=== PATIENT | female | born 1950 | race Caucasian/White ===

== ENCOUNTER → 2016-11-25 | Outpatient (CLI) | payer MEDICARE, OTHER ==
--- NOTE | 2016-11-28 16:53 | PE ---
EXAMINATION TYPE: PET CT fusion whole body DATE OF EXAM: 11/25/2016 1:09 PM COMPARISON: No prior PET/CT. No comparison CTs at this location. HISTORY: Non-Hodgkin's lymphoma TECHNIQUE: Following the intravenous administration of 15.7 mCi of F-18 FDG, whole body images are p erformed from the skull base to the midthigh. Images are reviewed on the computer in the coronal, ax ial, and sagittal planes. Reconstructed rotating images are created on independent workstation and r eviewed on the computer. A localization and attenuation correction CT is performed in conjunction w ith the PET scan. SCAN: Initial Scan FINDINGS: There is diffuse uptake within the musculature of the arms compatible with motion during an d subsequent to the injection. Focal uptake within enlarged lymphadenopathy is not identified. Small focal areas of increased uptake are not readily apparent. There is some normal uptake within brown fat in the posterior neck and nor mal uptake within bowel loops within the pelvis. Suspicious uptake in the region of the parotid gland is not identified. The patient has undergone a p arotidectomy. No residual abnormal signal in this region is evident. Blood glucose level 71 milligrams per deciliter. Average SUV mediastinum: 1.4 Average SUV of the liver: 2.0 SKULL BASE AND NECK: No focal suspicious uptake CHEST, MEDIASTINUM, AND HILAR REGION: No focal suspicious uptake ABDOMEN AND PELVIS: No focal suspicious uptake OSSEOUS STRUCTURES: Some minimal inflammatory change may be at the left L5-S1 facet. This SUV value i s intermediate range of 2.6 and 1.8. Metastatic lesion is not entirely excluded this level. OTHER CT: The ascending thoracic aorta at the level of the main pulmonary artery is 3.6 cm. The main pulmonary artery at the bifurcation is 2.5 cm. Very minimal coronary artery calcification may be pres ent. Vascular calcifications within the descending thoracic aorta. There appears to be a 0.8 cm peria ortic lymph node. Series 3 Image 138. Small inguinal lymph nodes are present. IMPRESSION: 1. No suspicious uptake to suggest distant metastasis. 2. No suspicious uptake within the region of the parotid glands.
== END | disposition home or self-care (01) ==
LOC: RADPETMAIN 07:55
PROVIDERS: ATTEND Internal Medicine Critical Care Medicine
DX: C85.90 Non-Hodgkin lymphoma, unspecified, unspecified site (principal)
CPT/HCPCS: 78816; A9552

== ENCOUNTER → 2017-01-18 | Outpatient (CLI) | payer MEDICARE, OTHER ==
--- NOTE | 2017-01-18 12:32 | XR ---
Left ankle HISTORY: Pain 3 views of the left ankle There is soft tissue swelling. Bone mineralization, joint spaces and alignment are maintained. IMPRESSION: No fracture or dislocation. Ankle MRI may be of benefit.
--- NOTE | 2017-01-18 12:33 | XR ---
Left foot HISTORY: Left foot pain 3 views of the left foot No comparisons Bone mineralization, joint spaces and alignment are maintained. There is overlying artifact. Mild staci lux valgus to formally first digit. There is no fracture or dislocation. IMPRESSION: Hallux valgus deformity.
== END | disposition home or self-care (01) ==
LOC: RADXRMAIN 11:42
PROVIDERS: ATTEND Internal Medicine Rheumatology
DX: M20.12 Hallux valgus (acquired), left foot (principal); M79.672 Pain in left foot

== ENCOUNTER → 2017-05-07 | Outpatient (CLI) | payer MEDICARE, OTHER ==
--- NOTE | 2017-05-07 11:27 | US ---
EXAMINATION TYPE: US venous doppler duplex LE RT DATE OF EXAM: 05/07/2017 11:14 AM COMPARISON: CLINICAL HISTORY: 66-year-old female M25.561 Pain in right leg. Posterior right knee pain. History of DVT in left leg x 8 years ago. Not on any blood thinners SIDE PERFORMED: Right TECHNIQUE: The lower extremity deep venous system is examined utilizing real time linear array sonog cecelia with graded compression, doppler sonography and color-flow sonography. FINDINGS: VESSELS IMAGED: External Iliac Vein (EIV) Common Femoral Vein Deep Femoral Vein Greater Saphenous Vein * Femoral Vein Popliteal Vein Small Saphenous Vein * Proximal Calf Veins (* superficial vessels) Right Leg: - Appears negative for DVT. - Along the posterior aspect of the knee, there is a superficial vein dilated up to 1 cm and filled w ith irregular thrombus. This fills the lumen and some areas and is incompletely occlusive thrombus. IMPRESSION: 1. No evidence for DVT within the right lower extremity imaged from the groin to the upper calf. 2. However, the exam is positive for SVT at the level of the posterior knee.
== END | disposition home or self-care (01) ==
LOC: RADUSWWP 10:17
PROVIDERS: ATTEND Orthopaedic Surgery
DX: I82.812 Embolism and thrombosis of superficial veins of left lower extremity (principal)

== ENCOUNTER 2017-05-14 07:02 | Emergency (ER) | payer MEDICARE, OTHER ==
--- NOTE | 2017-05-14 07:23 | ED ---
General Adult HPI - General Chief complaint: Extremity Injury, Lower Stated complaint: leg pain-blood clot Time Seen by Provider: 05/14/17 07:23 Source: patient, RN notes reviewed, old records reviewed Mode of arrival: ambulatory Limitations: no limitations - History of Present Illness Initial comments: This is a 66-year-old female ER for evaluation of multiple complaints, complains revolving around pain. 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 Patient complaining of right lower extremity pain. Briefly diagnosed with superficial clot. An severe back pain today, back pain that woke her up from sleep, back pain radiating into left leg. No trauma no fevers no recent travel history. No prior history of similar complaints - Related Data Home Medications Medication Instructions Recorded Confirmed Atorvastatin [Lipitor] 10 mg PO DAILY 05/14/17 05/14/17 Clobetasol Propionate [Temovate 1 applic TOPICAL BID 05/14/17 05/14/17 0.05% Cream] Doxycycline [Vibramycin] 50 mg PO Q12HR 05/14/17 05/14/17 Fexofenadine HCl [Kate Allergy] 180 mg PO DAILY PRN 05/14/17 05/14/17 Hydroxychloroquine Sulfate 200 mg PO DAILY 05/14/17 05/14/17 [Plaquenil] Losartan Potassium [Cozaar] 100 mg PO DAILY 05/14/17 05/14/17 Meloxicam [Mobic] 15 mg PO DAILY 05/14/17 05/14/17 Pilocarpine HCl [Salagen] 5 mg PO TID 05/14/17 05/14/17 Sulfamethox-Tmp 800-160Mg [Bactrim 1 tab PO Q12HR 05/14/17 05/14/17 DS 800-160 mg] amLODIPine BESYLATE [Norvasc] 5 mg PO DAILY 05/14/17 05/14/17 Previous Rx's Medication Instructions Recorded HYDROcodone/APAP 5-325MG [[place] 1 tab PO Q6HR PRN #20 tab 05/14/17 5-325] Naproxen [Naprosyn] 250 mg PO BID #20 tab 05/14/17 Allergies Allergy/AdvReac Type Severity Reaction Status Date / Time codeine Allergy Unknown Verified 05/14/17 07:27 erythromycin base Allergy Unknown Verified 05/14/17 07:27 nystatin Allergy Unknown Verified 05/14/17 07:27 Review of Systems ROS Statement: Those systems with pertinent positive or pertinent negative responses have been documented in the HPI. ROS Other: All systems not noted in ROS Statement are negative. Past Medical History Past Medical History: Asthma Additional Past Medical History / Comment(s): lupus, sjorgrens disease History of Any Multi-Drug Resistant Organisms: None Reported Past Surgical History: Hysterectomy, Tonsillectomy Past Psychological History: No Psychological Hx Reported Smoking Status: Current every day smoker Past Alcohol Use History: None Reported Past Drug Use History: None Reported General Exam Limitations: no limitations General appearance: alert, in no apparent distress Head exam: Present: atraumatic, normocephalic, normal inspection Eye exam: Present: normal appearance, PERRL, EOMI. Absent: scleral icterus, conjunctival injection, periorbital swelling ENT exam: Present: normal exam, mucous membranes moist Neck exam: Present: normal inspection. Absent: tenderness, meningismus, lymphadenopathy Respiratory exam: Present: normal lung sounds bilaterally. Absent: respiratory distress, wheezes, rales, rhonchi, stridor Cardiovascular Exam: Present: regular rate, normal rhythm, normal heart sounds. Absent: systolic murmur, diastolic murmur, rubs, gallop, clicks GI/Abdominal exam: Present: soft, normal bowel sounds. Absent: distended, tenderness, guarding, rebound, rigid Extremities exam: Present: normal inspection, full ROM, normal capillary refill. Absent: tenderness, pedal edema, joint swelling, calf tenderness Back exam: Present: normal inspection Neurological exam: Present: alert, oriented X3, CN II-XII intact Psychiatric exam: Present: normal affect, normal mood Skin exam: Present: warm, dry, intact, normal color. Absent: rash Course Vital Signs 05/14/17 05/14/17 07:05 09:19 Temperature 97.1 F L 96.7 F L Pulse Rate 92 68 Respiratory 17 17 Rate Blood Pressure 140/79 169/74 O2 Sat by Pulse 97 99 Oximetry - Reevaluation(s) Reevaluation #1: 05/14/17 10:44 His pain is resolved, controlled EKG Findings - EKG Comments: EKG Findings:: EKG shows normal sinus rhythm at 67, FL 164, QRS 84, QTC 448 Medical Decision Making - Medical Decision Making 66-year-old year with severe back pain, no history of back pain. Testing is deemed negative, including CRP lab work and CT, patient can be discharged home - Lab Data Result diagrams: 05/14/17 08:20 05/14/17 08:20 Lab Results 05/14/17 05/14/17 05/14/17 Range/Units 08:20 08:20 08:20 WBC 4.3 (3.8-10.6) k/uL RBC 4.25 (3.80-5.40) m/uL Hgb 13.6 (11.4-16.0) gm/dL Hct 38.7 (34.0-46.0) % MCV 91.0 (80.0-100.0) fL MCH 32.0 (25.0-35.0) pg MCHC 35.1 (31.0-37.0) g/dL RDW 12.4 (11.5-15.5) % Plt Count 285 (150-450) k/uL Neutrophils % 69 % Lymphocytes % 13 % Monocytes % 11 % Eosinophils % 2 % Basophils % 1 % Neutrophils # 3.0 (1.3-7.7) k/uL Lymphocytes # 0.6 L (1.0-4.8) k/uL Monocytes # 0.5 (0-1.0) k/uL Eosinophils # 0.1 (0-0.7) k/uL Basophils # 0.0 (0-0.2) k/uL PT (9.0-12.0) sec INR (<1.2) APTT (22.0-30.0) sec Sodium 128 L (137-145) mmol/L Potassium 4.5 (3.5-5.1) mmol/L Chloride 97 L (98-107) mmol/L Carbon Dioxide 21 L (22-30) mmol/L Anion Gap 10 mmol/L BUN 18 H (7-17) mg/dL Creatinine 0.83 (0.52-1.04) mg/dL Est GFR (MDRD) Af Amer >60 (>60 ml/min/1.73 sqM) Est GFR (MDRD) Non-Af >60 (>60 ml/min/1.73 sqM) Glucose 84 (74-99) mg/dL Plasma Lactic Acid Diaz (0.7-2.0) mmol/L Calcium 9.4 (8.4-10.2) mg/dL Phosphorus 3.2 (2.5-4.5) mg/dL Magnesium 1.7 (1.6-2.3) mg/dL Total Bilirubin 0.3 (0.2-1.3) mg/dL AST 22 (14-36) U/L ALT 34 (9-52) U/L Alkaline Phosphatase 83 (38-126) U/L Total Creatine Kinase 64 (30-135) U/L CK-MB (CK-2) 1.6 (0.0-2.4) ng/mL CK-MB (CK-2) Rel Index 2.5 C-Reactive Protein <5.0 (<10.0) mg/L Total Protein 6.3 (6.3-8.2) g/dL Albumin 3.8 (3.5-5.0) g/dL Urine Color Urine Appearance (Clear) Urine pH (5.0-8.0) Ur Specific [place] (1.001-1.035) Urine Protein (Negative) Urine Glucose (UA) (Negative) Urine Ketones (Negative) Urine Blood (Negative) Urine Nitrite (Negative) Urine Bilirubin (Negative) Urine Urobilinogen (<2.0) mg/dL Ur Leukocyte Esterase (Negative) 05/14/17 05/14/17 05/14/17 Range/Units 08:20 08:20 08:20 WBC (3.8-10.6) k/uL RBC (3.80-5.40) m/uL Hgb (11.4-16.0) gm/dL Hct (34.0-46.0) % MCV (80.0-100.0) fL MCH (25.0-35.0) pg MCHC (31.0-37.0) g/dL RDW (11.5-15.5) % Plt Count (150-450) k/uL Neutrophils % % Lymphocytes % % Monocytes % % Eosinophils % % Basophils % % Neutrophils # (1.3-7.7) k/uL Lymphocytes # (1.0-4.8) k/uL Monocytes # (0-1.0) k/uL Eosinophils # (0-0.7) k/uL Basophils # (0-0.2) k/uL PT 10.4 (9.0-12.0) sec INR 1.0 (<1.2) APTT 24.6 (22.0-30.0) sec Sodium (137-145) mmol/L Potassium (3.5-5.1) mmol/L Chloride (98-107) mmol/L Carbon Dioxide (22-30) mmol/L Anion Gap mmol/L BUN (7-17) mg/dL Creatinine (0.52-1.04) mg/dL Est GFR (MDRD) Af Amer (>60 ml/min/1.73 sqM) Est GFR (MDRD) Non-Af (>60 ml/min/1.73 sqM) Glucose (74-99) mg/dL Plasma Lactic Acid Diaz 1.1 (0.7-2.0) mmol/L Calcium (8.4-10.2) mg/dL Phosphorus (2.5-4.5) mg/dL Magnesium (1.6-2.3) mg/dL Total Bilirubin (0.2-1.3) mg/dL AST (14-36) U/L ALT (9-52) U/L Alkaline Phosphatase (38-126) U/L Total Creatine Kinase (30-135) U/L CK-MB (CK-2) (0.0-2.4) ng/mL CK-MB (CK-2) Rel Index C-Reactive Protein (<10.0) mg/L Total Protein (6.3-8.2) g/dL Albumin (3.5-5.0) g/dL Urine Color Yellow Urine Appearance Clear (Clear) Urine pH 7.0 (5.0-8.0) Ur Specific [place] 1.014 (1.001-1.035) Urine Protein Trace H (Negative) Urine Glucose (UA) Negative (Negative) Urine Ketones Negative (Negative) Urine Blood Negative (Negative) Urine Nitrite Negative (Negative) Urine Bilirubin Negative (Negative) Urine Urobilinogen <2.0 (<2.0) mg/dL Ur Leukocyte Esterase Negative (Negative) - Radiology Data Radiology results: report reviewed (CT abdomen and pelvis CT lumbar spine negative, ultrasound right lower extremity), image reviewed Disposition Clinical Impression: Acute back pain Disposition: HOME SELF-CARE Condition: Good Instructions: Acute Low Back Pain (ED) Prescriptions: HYDROcodone/APAP 5-325MG [[place] 5-325] 1 tab PO Q6HR PRN #20 tab PRN Reason: Pain Naproxen [Naprosyn] 250 mg PO BID #20 tab Referrals: Ayana Guzmán MD [Primary Care Provider] - 1-2 days
[2017-05-14] MEDS ORDERED: HYDROcodone/APAP 5-325MG 1 EACH TAB PO STA (07:37)
[2017-05-14] MEDS ORDERED: SODIUM CHLORIDE 0.9% 1,000 ML IV STA ×3 (07:51→10:11)
[2017-05-14] MEDS ORDERED: RX INFO: IV CONTRAST WAS GIVEN 1 EACH MISC MISCELLANE PRN (07:51)
[2017-05-14] MEDS ORDERED: MORPHINE SULFATE 4 MG/ML SYRINGE IV STA (07:51)
[2017-05-14] MEDS ORDERED: SODIUM CHLORIDE 0.9% 500 ML IV STA (07:51)
[2017-05-14 08:37] LABS: Basophils % (A) 1 %; CH 31.9; CHCM 35.2; Eosinophils # (A) 0.1 k/uL (0-0.7); Eosinophils % (A) 2 %; HCT 38.7 % (34.0-46.0); HDW 2.39; HGB 13.6 gm/dL (11.4-16.0); Luc # (Auto) 0.16; Luc % (Auto) 4; Lymphocytes # (A) 0.6 k/uL (1.0-4.8); Lymphocytes % (A) 13 %; MCHC 35.1 g/dL (31.0-37.0); Mean Platelet Volume 6.6; Monocytes # (A) 0.5 k/uL (0-1.0); Monocytes % (A) 11 %; Neutrophils % (A) 69 %; RBC 4.25 m/uL (3.80-5.40); RDW 12.4 % (11.5-15.5); WBC 4.3 k/uL (3.8-10.6); WBC (Perox) 4.54
[2017-05-14 08:38] LABS: Appearance,Urine Clear (Clear); Bilirubin,Urine Negative (Negative); Glucose,Urine (UA) Negative (Negative); Ketones,Urine Negative (Negative); Leukocyte Esterase,Urine Negative (Negative); Nitrite,Urine Negative (Negative); Protein,Urine Trace (Negative); Specific Gravity,Urine 1.014 (1.001-1.035); UA Billing (MACRO vs. MICRO) CHEM; Urobilinogen,Urine <2.0 mg/dL (<2.0)
[2017-05-14 08:46] LABS: Partial Thromboplastin Time 24.6 sec (22.0-30.0); Prothrombin Time 10.4 sec (9.0-12.0)
[2017-05-14 08:58] LABS: ALT 34 U/L (9-52); AST 22 U/L (14-36); Alkaline Phosphatase 83 U/L (38-126); Anion Gap 10 mmol/L; Blood Urea Nitrogen 18 mg/dL (7-17); Calcium 9.4 mg/dL (8.4-10.2); Carbon Dioxide 21 mmol/L (22-30); Chloride 97 mmol/L (98-107); Glucose 84 mg/dL (74-99); Magnesium 1.7 mg/dL (1.6-2.3); Non-African American GFR(MDRD) >60 (>60 ml/min/1.73 sqM); Phosphorous 3.2 mg/dL (2.5-4.5); Potassium 4.5 mmol/L (3.5-5.1); Sodium 128 mmol/L (137-145); Total Bilirubin 0.3 mg/dL (0.2-1.3)
--- NOTE | 2017-05-14 09:04 | US ---
EXAMINATION TYPE: US venous doppler duplex LE RT DATE OF EXAM: 05/14/2017 8:52 AM COMPARISON: 05/07/2017 CLINICAL HISTORY: Pain. Severe back pain today, leg not bothering patient versus when she was here week but she had appt to reassess right leg as outpatient today, no h/o dvt SIDE PERFORMED: Right TECHNIQUE: The lower extremity deep venous system is examined utilizing real time linear array sonog cecelia with graded compression, doppler sonography and color-flow sonography. 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 No diagnostic evidence of DVT as visualized. Superficial venous thrombosis again noted. 2. Complex cyst popliteal fossa. Measures approximately 3.6 cm. Consider MRI follow-up.
[2017-05-14 09:19] LABS: Creatine Kinase MB 1.6 ng/mL (0.0-2.4)
[2017-05-14 09:20] VITALS: TEMP 96.7
[2017-05-14 09:28] LABS: C Reactive Protein <5.0 mg/L (<10.0); Total Protein 6.3 g/dL (6.3-8.2)
--- NOTE | 2017-05-14 09:56 | CT ---
EXAMINATION TYPE: CT abdomen pelvis w con, CT lumbar spine w con DATE OF EXAM: 05/14/2017 HISTORY: Abdominal and back pain, history of lymphoma. CT DLP: 651.3 (abd pelvis and lumbar)mGycm Automated Exposure Control for Dose Reduction was Utilize d. CONTRAST: CT scan of the abdomen and pelvis is performed without oral but with IV Contrast, patient injected wi th 100 mL of Omnipaque 300. Additional CT imaging of the lumbar spine is performed with IV contrast. COMPARISON: PET CT November 25, 2016. FINDINGS: LUNG BASES: No significant abnormality is appreciated. LIVER/GB: No significant abnormality is appreciated. PANCREAS: No significant abnormality is seen. SPLEEN: A 1 cm splenule is seen inferior to the spleen. ADRENALS: No significant abnormality is seen. KIDNEYS: No significant abnormality is seen. BOWEL: There is slightly prominent low lying fecal filled cecum. Normal-appearing appendix is seen fr om cecum. The amount of fecal material is slightly prominent in the right and left colon. There is n o suspicious small or large bowel dilatation seen. UTERUS/ADNEXA: Uterus is surgically absent or markedly atrophic in appearance. LYMPH NODES: No greater than 1cm abdominal or pelvic lymph nodes are appreciated. OSSEOUS STRUCTURES: There is mild to moderate axial joint space loss in both hips. OTHER: There is mild calcified atherosclerotic change of distal abdominal aorta. L-SPINE: There are 5 lumbar type vertebra identified. Lumbar spine shows satisfactory alignment witho ut evidence of acute fracture or dislocation. Osseous structures are demineralized. Vertebral body he ights are maintained. There is moderate to advanced disc space narrowing with endplate sclerosis and subchondral cystic change as well as moderate anterior spurring L2-L3 level. There is moderate disc s pace narrowing with vacuum disc phenomenon and mild to moderate spurring at L5-S1 level. Posterior sp ur disc complexes are effacing anterior thecal sac at these levels on sagittal images. Review of axial images shows a T12-L1 and L1-L2 levels to appear within normal limits. Axial images at L2-L3 level show broad-based posterior disc protrusion effacing anterior thecal sac, there is mild bilateral anterior inferior neural foraminal narrowing at this level identified. Axial images at L3-L4 level show broad-based central disc protrusion mildly effacing anterior thecal sac and causing mild bilateral anterior inferior neural foraminal narrowing. Axial images at L4-L5 level show mild to moderate facet degenerative changes and ligament flavum hype rtrophy. There is right paracentral disc protrusion. There is effacement of the anterior and posterio r lateral thecal sac near axial image 52. There is mild bilateral anterior inferior neural foraminal narrowing. Axial images at L5-S1 level shows central disc protrusion perhaps minimally effacing anterior thecal sac and mild to moderate facet degenerative changes bilaterally. There is mild right greater than lef t neural foraminal narrowing seen. IMPRESSION: No significant acute finding is seen to account for patient's clinical symptoms. No suspi cious mass or adenopathy in the abdomen or pelvis. Liver and spleen are nonenlarged. Multilevel degen erative changes in lumbar spine are seen as detailed above.
[2017-05-14] MEDS ORDERED: KETOROLAC 30 MG/ML 1 ML VIAL IVP STA (10:43)
[2017-05-14 11:17] VITALS: BP 147/67; PULSE 70; RESP 16
== END 2017-05-14 11:30 | disposition home or self-care (01) ==
LOC: EC 07:02
DX: M54.9 Dorsalgia, unspecified (principal); M79.661 Pain in right lower leg; F17.200 Nicotine dependence, unspecified, uncomplicated; Z88.5 Allergy status to narcotic agent; Z88.1 Allergy status to other antibiotic agents; Z79.1 Long term (current) use of non-steroidal anti-inflammatories (NSAID); Z79.899 Other long term (current) drug therapy
CPT/HCPCS: 36415; 93005; 80053; 82550; 82553; 83605; 83735; 84100; 85025; 85610; 85730; 86140; 81003; 87040; 87086; 93971; 72132; 74177; 99284; 96374; 96375; 96361 ×3; J2270; J1885; Q9967

== ENCOUNTER → 2017-06-07 | Outpatient (CLI) | payer MEDICARE, OTHER ==
[2017-06-07 08:20] LABS: Basophils % (A) 1 %; CH 31.7; CHCM 33.8; Eosinophils # (A) 0.1 k/uL (0-0.7); Eosinophils % (A) 3 %; HCT 39.3 % (34.0-46.0); HDW 2.42; HGB 13.2 gm/dL (11.4-16.0); Luc # (Auto) 0.12; Luc % (Auto) 3; Lymphocytes # (A) 0.5 k/uL (1.0-4.8); Lymphocytes % (A) 14 %; MCH 31.6 pg (25.0-35.0); MCHC 33.7 g/dL (31.0-37.0); Mean Platelet Volume 6.6; Monocytes # (A) 0.5 k/uL (0-1.0); Monocytes % (A) 12 %; Neutrophils # (A) 2.7 k/uL (1.3-7.7); Neutrophils % (A) 68 %; RBC 4.18 m/uL (3.80-5.40); WBC 3.9 k/uL (3.8-10.6); WBC (Perox) 3.91
[2017-06-07 08:39] LABS: Cholesterol 219 mg/dL (<200); HDL Cholesterol 84 mg/dL (40-60)
== END | disposition home or self-care (01) ==
LOC: LABWHC1 07:40
PROVIDERS: ATTEND Internal Medicine Critical Care Medicine
DX: C85.90 Non-Hodgkin lymphoma, unspecified, unspecified site (principal); E78.5 Hyperlipidemia, unspecified; M32.9 Systemic lupus erythematosus, unspecified; M35.00 Sjogren syndrome, unspecified; I10 Essential (primary) hypertension
CPT/HCPCS: 36415; 80061; 85025

== ENCOUNTER → 2017-06-11 | Outpatient (CLI) | payer MEDICARE, OTHER ==
--- NOTE | 2017-06-11 10:22 | US ---
EXAMINATION TYPE: US venous doppler duplex LE RT DATE OF EXAM: 06/11/2017 10:05 AM COMPARISON: 05/14/2017 and 05/07/2017. CLINICAL HISTORY: RTLeg I80.9 Phlebitis and thrombophlebitis. SIDE PERFORMED: Right TECHNIQUE: The lower extremity deep venous system is examined utilizing real time linear array sonog cecelia with graded compression, doppler sonography and color-flow sonography. VESSELS IMAGED: External Iliac Vein (EIV) Common Femoral Vein Deep Femoral Vein Greater Saphenous Vein * Femoral Vein Popliteal Vein Small Saphenous Vein * Proximal Calf Veins (* superficial vessels) The previously seen complex cyst within the popliteal fossa currently measures 1.6 x 1.1 x 2.0 cm and previously measured up to 3.6 cm. Elongated hypoechoic structure along the proximal calf posterior t o the soleus muscle and deep to the subcutaneous tissues is discontinuous and therefore likely relate s to subcutaneous fluid insinuating along the fascial surface. Alternatively this could represent a t ortuous venous structure. Right Leg: Grayscale, color doppler, spectral doppler imaging performed of the deep veins of the low er extremities. There is normal flow, compressibility, vascular waveforms bilaterally. Findings were relayed to the ordering physician by the tinner helper. IMPRESSION: 1. No evidence of deep venous thrombosis. 2. Redemonstration of a popliteal cyst. 3. Elongated fluid superficial to the fascial plane of the gastrocnemius that appears discontinuous a nd this likely represents subcutaneous fluid rather than a tortuous venous structure. Correlation cli nically for thrombophlebitis versus subcutaneous edema is recommended.
== END | disposition home or self-care (01) ==
LOC: RADUSWWP 09:35
PROVIDERS: ATTEND Internal Medicine Critical Care Medicine
DX: M71.21 Synovial cyst of popliteal space [Baker], right knee (principal); R22.41 Localized swelling, mass and lump, right lower limb

== ENCOUNTER → 2018-01-10 | Outpatient (CLI) | payer MEDICARE, OTHER ==
[2018-01-10 08:12] LABS: Basophils % (A) 0 %; Eosinophils % (A) 0 %; HCT 38.2 % (34.0-46.0); HGB 13.4 gm/dL (11.4-16.0); Lymphocytes % (A) 13 %; MCH 32.2 pg (25.0-35.0); MCV 91.9 fL (80.0-100.0); Mean Platelet Volume 6.5; Monocytes # (A) 0.8 k/uL (0-1.0); Monocytes % (A) 10 %; Neutrophils # (A) 5.9 k/uL (1.3-7.7); Neutrophils % (A) 75 %; Platelet Count 304 k/uL (150-450); RBC 4.16 m/uL (3.80-5.40); RDW 13.3 % (11.5-15.5); WBC 7.9 k/uL (3.8-10.6)
== END | disposition home or self-care (01) ==
LOC: LABWHC1 07:22
PROVIDERS: ATTEND Internal Medicine Critical Care Medicine
DX: C85.90 Non-Hodgkin lymphoma, unspecified, unspecified site (principal); J45.909 Unspecified asthma, uncomplicated; M35.00 Sjogren syndrome, unspecified; M32.9 Systemic lupus erythematosus, unspecified
CPT/HCPCS: 36415; 85025

== ENCOUNTER → 2018-08-06 | Outpatient (CLI) | payer MEDICARE, OTHER ==
[2018-08-06 08:30] LABS: Cholesterol 182 mg/dL (<200); HDL Cholesterol 82 mg/dL (40-60); LDL Cholesterol,Calculated 90 mg/dL (0-99); Triglycerides 51 mg/dL (<150)
[2018-08-06 08:44] LABS: Basophils % (A) 1 %; Eosinophils # (A) 0.2 k/uL (0-0.7); Eosinophils % (A) 5 %; HCT 40.3 % (34.0-46.0); HGB 13.8 gm/dL (11.4-16.0); Lymphocytes # (A) 0.7 k/uL (1.0-4.8); Lymphocytes % (A) 21 %; MCH 31.1 pg (25.0-35.0); MCHC 34.1 g/dL (31.0-37.0); MCV 91.2 fL (80.0-100.0); Mean Platelet Volume 7.2; Monocytes # (A) 0.5 k/uL (0-1.0); Monocytes % (A) 15 %; Neutrophils # (A) 1.9 k/uL (1.3-7.7); Neutrophils % (A) 57 %; Platelet Count 223 k/uL (150-450); RBC 4.42 m/uL (3.80-5.40); RDW 13.3 % (11.5-15.5); WBC 3.4 k/uL (3.8-10.6)
== END ==
LOC: LABWHC1 06:40
PROVIDERS: ATTEND Internal Medicine Critical Care Medicine
DX: E78.00 Pure hypercholesterolemia, unspecified (principal); Z79.899 Other long term (current) drug therapy
CPT/HCPCS: 36415; 80061; 85025

== ENCOUNTER → 2020-01-05 | Outpatient (CLI) | payer MEDICARE, OTHER ==
[2020-01-05 08:00] LABS: Basophils % (A) 1 %; Eosinophils # (A) 0.1 k/uL (0-0.7); Eosinophils % (A) 2 %; HGB 14.2 gm/dL (11.4-16.0); Lymphocytes # (A) 0.9 k/uL (1.0-4.8); Lymphocytes % (A) 22 %; MCH 30.9 pg (25.0-35.0); MCHC 32.9 g/dL (31.0-37.0); MCV 93.8 fL (80.0-100.0); Mean Platelet Volume 7.2; Monocytes # (A) 0.5 k/uL (0-1.0); Monocytes % (A) 13 %; Neutrophils # (A) 2.2 k/uL (1.3-7.7); Neutrophils % (A) 58 %; Platelet Count 232 k/uL (150-450); RBC 4.59 m/uL (3.80-5.40); RDW 12.4 % (11.5-15.5); WBC 3.9 k/uL (3.8-10.6)
[2020-01-05 11:03] LABS: African American GFR (CKD) 102.5 (60.0-200.0); Albumin 4.5 g/dL (3.80-4.90); Albumin/Globulin Ratio 2.25 (1.60-3.17); Anion Gap 8.2 mmol/L (4.00-12.00); BUN/Creat Ratio 27.14 Ratio (12.00-20.00); Calcium 9.6 mg/dL (8.7-10.3); Carbon Dioxide 26.8 mmol/L (21.6-31.8); Chol/HDL Ratio 2.14; LDL Cholesterol,Calculated 85.6 mg/dL (0.0-131.0); Non-African American GFR(CKD) 88.4 (60.0-200.0); Potassium 4.4 mmol/L (3.5-5.5); Total Bilirubin 0.6 mg/dL (0.2-1.2); Total Protein 6.5 g/dL (6.2-8.2); VLDL Calculation 10.4 mg/dL (5.00-40.00)
[2020-01-05 11:11] LABS: T4, Free (Free Thyroxine) 1.4 ng/dL (0.80-1.80)
== END | disposition home or self-care (01) ==
LOC: LABWHC1 07:14
PROVIDERS: ATTEND Internal Medicine Critical Care Medicine
DX: E78.5 Hyperlipidemia, unspecified (principal); I10 Essential (primary) hypertension; J45.909 Unspecified asthma, uncomplicated; I83.93 Asymptomatic varicose veins of bilateral lower extremities
CPT/HCPCS: 36415; 80053; 80061; 84439; 84443; 85025

== ENCOUNTER → 2020-01-07 | Outpatient (CLI) | payer MEDICARE | END | disposition home or self-care (01) | LOC: LABWHC1 07:07 | PROVIDERS: ATTEND Physician Assistant | DX: Z47.1 Aftercare following joint replacement surgery (principal); Z96.651 Presence of right artificial knee joint | CPT/HCPCS: 36415; 85652; 86140 ==

== ENCOUNTER 2020-03-06 00:44 | Emergency (ER) | payer MEDICARE, OTHER ==
[2020-03-06] MEDS ORDERED: HYDROmorphone 1 MG/ML 1 ML SYRINGE IVP STA (00:53)
--- NOTE | 2020-03-06 01:15 | XR ---
EXAMINATION TYPE: XR knee complete RT DATE OF EXAM: 03/06/2020 COMPARISON: NONE HISTORY: Knee pain TECHNIQUE: 3 views FINDINGS: There is right knee prosthesis. There is large knee joint effusion. I see no fracture nor d islocation. Components are in anatomic position. IMPRESSION: Large knee joint effusion. No fracture seen.
[2020-03-06 01:17] VITALS: PULSE 68; RESP 18
--- NOTE | 2020-03-06 01:27 | ED ---
Extremity Problem HPI - General Chief complaint: Extremity Problem,Nontraumatic Stated complaint: knee pain Time Seen by Provider: 03/06/20 00:46 Source: EMS Mode of arrival: EMS Limitations: no limitations - History of Present Illness Initial comments: 69 year-old female patient presents to the emergency department today for evaluation of right knee pain. Patient states that pain started just prior to arrival. She states it woke her from sleep. She denies any recent injury to the knee. States on 02/10/2020 she did hyperextend the knee and developed significant bruising and swelling to the knee since then. Patient states that she had a right total knee replacement approximately one year ago and has been having chronic pain to the lateral knee since then. States that she has followed up multiple times and [facility], they are unable to find a cause for her pain. States since the hyperextension she did follow up with Dr. Carbajal at the [facility], states he did drain a large amount of blood from the knee. Patient states she was in her usual state of health before going to bed. States she slept with her knee on a pillow like every other night. States that the knee hurts worse than it ever has before. She feels like the "bones are out of place". She denies any fever or chills. Denies numbness or tingling to the knee. Patient denies any headache, neck pain, back pain, chest pain, shortness of breath, dizziness, weakness, abdominal pain, nausea, vomiting, or difficulties with bowel movements or urination. - Related Data Home Medications Medication Instructions Recorded Confirmed Atorvastatin [Lipitor] 10 mg PO DAILY 05/14/17 05/14/17 Clobetasol Propionate [Temovate 1 applic TOPICAL BID 05/14/17 05/14/17 0.05% Cream] Doxycycline [Vibramycin] 50 mg PO Q12HR 05/14/17 05/14/17 Fexofenadine HCl [Kate Allergy] 180 mg PO DAILY PRN 05/14/17 05/14/17 Hydroxychloroquine Sulfate 200 mg PO DAILY 05/14/17 05/14/17 [Plaquenil] Losartan Potassium [Cozaar] 100 mg PO DAILY 05/14/17 05/14/17 Meloxicam [Mobic] 15 mg PO DAILY 05/14/17 05/14/17 Pilocarpine HCl [Salagen] 5 mg PO TID 05/14/17 05/14/17 Sulfamethox-Tmp 800-160Mg [Bactrim 1 tab PO Q12HR 05/14/17 05/14/17 DS 800-160 mg] amLODIPine BESYLATE [Norvasc] 5 mg PO DAILY 05/14/17 05/14/17 Previous Rx's Medication Instructions Recorded HYDROcodone/APAP 5-325MG [Mereta 1 tab PO Q6HR PRN #20 tab 05/14/17 5-325] Naproxen [Naprosyn] 250 mg PO BID #20 tab 05/14/17 Hydrocodone/Acetaminophen [Mereta 1 tab PO Q6HR PRN #12 tab 03/06/20 5-325] Allergies Allergy/AdvReac Type Severity Reaction Status Date / Time codeine Allergy Unknown Verified 03/06/20 01:17 erythromycin base Allergy Unknown Verified 03/06/20 01:17 nystatin Allergy Unknown Verified 03/06/20 01:17 Review of Systems ROS Statement: Those systems with pertinent positive or pertinent negative responses have been documented in the HPI. ROS Other: All systems not noted in ROS Statement are negative. Past Medical History Past Medical History: Asthma Additional Past Medical History / Comment(s): lupus, sjorgrens disease History of Any Multi-Drug Resistant Organisms: None Reported Past Surgical History: Hysterectomy, Joint Replacement, Tonsillectomy Past Psychological History: No Psychological Hx Reported Smoking Status: Never smoker Past Alcohol Use History: None Reported Past Drug Use History: None Reported General Exam Limitations: no limitations General appearance: alert, in no apparent distress, other (This is a well- developed, well-nourished adult female patient in no acute distress. Vital signs upon presentation are temperature 97.8F, pulse 68, respirations 18, blood pressure 150/82, pulse ox 99% on room air.) Respiratory exam: Present: normal lung sounds bilaterally. Absent: respiratory distress, wheezes, rales, rhonchi, stridor Cardiovascular Exam: Present: regular rate, normal rhythm, normal heart sounds. Absent: systolic murmur, diastolic murmur, rubs, gallop, clicks GI/Abdominal exam: Present: soft, normal bowel sounds. Absent: distended, tenderness, guarding, rebound, rigid Extremities exam: Present: tenderness (Over the anterior and posterior knee over the right lateral calf.), normal capillary refill, other (There is soft tissue swelling, extensive ecchymosis noted over the right anterior knee and right lateral calf. Skin is otherwise pink, warm, dry. Cap refills less than 3 seconds. Pedal and posttibial pulses 2+ and equal bilaterally.). Absent: normal inspection, full ROM (Decreased range of motion to the right knee due to increased pain with movement), pedal edema, joint swelling, calf tenderness Neurological exam: Present: alert, oriented X3, CN II-XII intact Psychiatric exam: Present: normal affect, normal mood Skin exam: Present: warm, dry, intact, normal color. Absent: rash Course Vital Signs 03/06/20 01:14 Temperature 97.8 F Pulse Rate 68 Respiratory 18 Rate Blood Pressure 158/82 O2 Sat by Pulse 99 Oximetry Medical Decision Making - Medical Decision Making 69-year-old female patient presented to the emergency department today for evaluation of right knee pain that woke her from sleep. Patient does have chronic pain to the right knee over the last year since having a total knee arthroplasty. She receives care at the [facility]. Physical examination did reveal large area of ecchymosis and swelling over the anterior right knee and right lateral calf. Neurovascular status was intact. X-ray was obtained and showed a large knee joint effusion. No osseous abnormalities. Ultrasound was obtained and did show a Garber cyst and large knee joint effusion. She will be discharged to follow up with her sap specialist on Sunday. She does have imaging ordered at [facility]. She'll be given a prescription for pain medication to manage symptoms until then. Return parameters were discussed in detail. She verbalizes understanding and agrees with this plan. - Radiology Data Radiology results: report reviewed, image reviewed Ultrasound of the right lower extremity was obtained. Report was reviewed in its entirety. Impression by Dr. Welch shows negative for DVT. There is a 5.6 x 2.8 x 2.6 complex area seen probably a Garber cyst. Right knee at the patient's area of concern shows a 10.6 x 2.4 x 5.6 complex area which is likely joint effusion. 3 views of the right knee are obtained. Report was reviewed in its entirety. Impression by Dr. Welch shows large knee joint effusion. No fracture seen Disposition Clinical Impression: Effusion of right knee joint Disposition: HOME SELF-CARE Condition: Good Instructions (If sedation given, give patient instructions): Swollen Knee Joint (ED) Additional Instructions: Follow-up with your sap specialist for further evaluation. Follow-up through care testing on Sunday as you have planned. Take medications as directed for pain control. Return to the emergency department immediately for any new, worsening, or concerning symptoms. Prescriptions: Hydrocodone/Acetaminophen [Mereta 5-325] 1 tab PO Q6HR PRN #12 tab PRN Reason: Pain Is patient prescribed a controlled substance at d/c from ED?: Yes When asked, does pt state using other controlled substances?: Yes If prescribed controlled substance>3 days was MAPS reviewed?: Prescribed <3 Days If opioid is for acute pain is fill amount 7 days or less?: Yes If Rx opioid, was Start Talking consent form obtained?: Yes Referrals: Ayana Guzmán MD [Primary Care Provider] - 1-2 days Frederick Carbajal MD [REFERRING] - 1-2 days Time of Disposition: 02:31
--- NOTE | 2020-03-06 02:07 | US ---
EXAMINATION TYPE: US venous doppler duplex LE RT DATE OF EXAM: 03/06/2020 1:55 AM COMPARISON: US 2017 CLINICAL HISTORY: Right leg pain/swelling. Right leg pain SIDE PERFORMED: Right TECHNIQUE: The lower extremity deep venous system is examined utilizing real time linear array sonog cecelia with graded compression, doppler sonography and color-flow sonography. VESSELS IMAGED: External Iliac Vein (EIV) Common Femoral Vein Deep Femoral Vein Greater Saphenous Vein * Femoral Vein Popliteal Vein Small Saphenous Vein * Proximal Calf Veins (* superficial vessels) Right Leg: Appears negative for DVT Right popliteal fossa: 5.6 x 2.8 x 2.6cm complex area seen, probable perez's cyst Right knee at patient's area of concern: 10.6 x 2.4 x 5.6cm complex area seen IMPRESSION: No evidence of deep vein thrombosis in the right leg. Large popliteal cyst noted. Complex area anterior to the distal femur consistent with complex knee joint effusion. This measures 10 x 2. 5 cm.
[2020-03-06 03:18] VITALS: BP 148/75; TEMP 98.4
== END 2020-03-06 03:45 | disposition home or self-care (01) ==
LOC: EC 00:44
DX: M25.461 Effusion, right knee (principal); G89.29 Other chronic pain; M71.21 Synovial cyst of popliteal space [Baker], right knee; Z79.1 Long term (current) use of non-steroidal anti-inflammatories (NSAID); Z79.899 Other long term (current) drug therapy; Z88.1 Allergy status to other antibiotic agents; Z88.5 Allergy status to narcotic agent; Z88.8 Allergy status to other drugs, medicaments and biological substances; Z96.651 Presence of right artificial knee joint
CPT/HCPCS: 73562; 93971; 99284; 96374; J1170

== ENCOUNTER → 2021-12-22 | Outpatient (CLI) | payer MEDICARE, OTHER ==
[2021-12-22 15:44] LABS: Blood Urea Nitrogen 20.9 mg/dL (9.0-27.0); Non-African American GFR(CKD) 74.2 (60.0-200.0)
== END | disposition home or self-care (01) ==
LOC: LABWHC1 10:33
PROVIDERS: ATTEND Internal Medicine Hematology & Oncology
DX: C85.90 Non-Hodgkin lymphoma, unspecified, unspecified site (principal); J45.909 Unspecified asthma, uncomplicated; L93.0 Discoid lupus erythematosus; M35.00 Sjogren syndrome, unspecified
CPT/HCPCS: 36415; 82565; 84520

== ENCOUNTER → 2022-01-30 | Outpatient (CLI) | payer MEDICARE, OTHER ==
--- NOTE | 2022-01-30 10:25 | P.CON ---
Consult Note - . Consult date: 01/30/22 Assessment/Plan:: HISTORY OF PRESENT ILLNESS: 71 yr old female as a referral from Dr. 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 Patient states neck pain waxes & wanes in intensity throughout the day based on activity, but is generally 5/10, dull, achy, localized to the bilateral neck area with radiation of pain to the left side of the head and the right shoulder. Pain exacerbated with activity. Pain is relieved with medications, topicals, heat, physical therapy in May 2021, chiropractic treatments years ago which were ineffective, use of a TENS unit at home, use of a massage chair at home, acupuncture in December 2021, repositioning and rest. Past Medical History: Asthma, SLE, Sjorgrens Disease, NHL undergoing chemo/radiation. Past Surgical History: Hysterectomy, Tonsillectomy, R total knee. Social History: No Tobacco use, No ETOH use, No illicit drug use. 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 All: See list Meds: See list REVIEW OF ORGAN SYSTEMS: CONSTITUTIONAL: No fevers or chills. No recent weight loss. HEENT: No visual acuity loss, eye pain, difficulties with hearing. No nosebleeds. No difficulty swallowing. RESPIRATORY: Denies any troubles with breathing or dyspnea on exertion. CARDIOVASCULAR: Denies any chest pain, palpitations, or recent heart attacks. GASTROINTESTINAL: Denies fatty food intolerance. Has change in bowel habits and gas bloat. GENITOURINARY: Denies any blood in urine. Has increased urinary frequency. NEUROLOGICAL: + numbness and tingling along the distal extremities. No seizure disorders or headaches. MUSCULOSKELETAL: + back pain SKIN: No skin cancer. No rash. PSYCHIATRIC: Denies current depression or suicidal thoughts. ENDOCRINE: Denies current thyroid disorders. Denies any blood sugar glucose intolerance. HEME/LYMPHATIC: Denies any lumps and bumps around the neck. History of deep venous thrombosis. ALLERGY/IMMUNOLOGY: No immunoglobulin therapy. No immune deficiencies. BREAST: Denies current breast lumps, pain or nipple discharge. Physical Examinations : Constitutional : Cooperative , not in acute distress . HEENT: Neck supple. No Lymphadenopathy. Normal thyroid size . Eyes no ptosis , no icterus, no photophobia . Hearing intact. Normal oropharynx. No Thrush. Respiratory : Chest clear to auscultations bilaterally. No wheezing. No rhonchi. Cardiovascular : Regular rate and rhythm , S1 / S2. No S3 . No S4. Gastrointestinal : Abdomen soft. No tenderness. Bowel sounds x 4. No organomegaly . Genitourinary : Deferred. Neurologic : Cranial nerve II to XII intact. No focal neurological deficits. Psychiatric : alert & oriented x 3. Matching mood & appropriate affect. Judgment & insight intact. Lymphatic No Lymphadenopathy. Musculoskeletal : Cervical Spine Motor strength in the deltoid and biceps: Normal right side. Normal Left side Motor strength biceps and the wrist extensors: Normal right side . Normal left side Motor strength in the triceps muscle: Normal right side. Normal left side Deep tendon reflexes: Normal at the biceps. Normal at Brachioradialis. Normal at triceps Vertebral body tenderness to palpation over C4, C5 Cervical facet loading test: positive bilaterally Spurling test: positive bilaterally Neck distraction test: positive bilaterally Yaritza sign: positive bilaterally Lumbar spine Motor strength lower extremities ,thigh and legs 5/5 Right side , 5/5 Left side Deep tendon reflexes : Normal Knee Jerk. Normal Ankle Jerk Vertebral body tenderness over Lumbar facet Loading Test: positive Right / positive Left Range of motion of the lumbar spine Flexion 30 degrees, extension 10 degrees Straight Leg Raise test: Left/ Right positive at degree Sammy test: positive right / positive left. Severe tenderness over the Sacroiliac joint on the Right / Left sides Gaenslen test: positive bilaterally Seated flexion test: positive bilaterally. Imaging: MRI of the cervical spine w/o contrast from 01/20/22 reviewed. Assessment/ Plan : Mentation of RAHEEM C4-C5. May need a series of injections, up to 3 with a six- month period, to obtain optimal pain relief. Risks, benefits of procedure discussed and patient verbalized understanding. Admits to ASA 81 daily. Denies medical history of diabetes. Protocol for discontinuation/ continuation of medications radhika procedure discussed. All questions answered. I have spent greater than 50 minutes on patient care today. Dr Villaseñor was available by phone for the evaluation of this patient. The time was used to review the medical records including relevant urine studies and Prescription history (MAPs), review of the available imaging, evaluation and examination of the patient, coordination of care with the medical staff and if applicable referring physicians, as well as creation of the medical record PQRS Measure Charge Sheet PQRS Narrative: Smoking Status Never smoker Pain Intensity [Right Upper 2 Arm] Hx Alcohol Use (MH) No Home Medications: Ambulatory Orders Atorvastatin [Lipitor] 10 mg PO DAILY 05/14/17 Fexofenadine HCl [Kate Allergy] 180 mg PO DAILY PRN 05/14/17 Hydroxychloroquine Sulfate [Plaquenil] 200 mg PO BID 05/14/17 Losartan Potassium [Cozaar] 100 mg PO DAILY 05/14/17 Meloxicam [Mobic] 15 mg PO DAILY 05/14/17 Pilocarpine HCl [Salagen] 5 mg PO TID 05/14/17 amLODIPine BESYLATE [Norvasc] 10 mg PO DAILY 05/14/17 Acetaminophen [Tylenol Extra Strength] 500 mg PO DIRECTED PRN 01/27/22 Albuterol Nebulized [Ventolin Nebulized] 2.5 mg INHALATION TID 01/27/22 Aspirin [Adult Low Dose Aspirin EC] 81 mg PO DAILY 01/27/22 Fluticasone/Salmeterol [Advair Hfa 115-21 Mcg Inhaler] 2 puff INHALATION BID 01/27/22 Ibuprofen [Motrin Ib] 400 mg PO Q8H PRN 01/27/22 Omeprazole Magnesium [PriLOSEC OTC] 20 mg PO DAILY 01/27/22 Vit C/E/Zn/Coppr/Lutein/Zeaxan [Preservision Areds 2 Softgel] 1 each PO BID 01/27/22
[2022-01-30 10:54] VITALS: BP 172/95; PULSE 87; RESP 18; TEMP 97.3
== END ==
LOC: PNWHC3 08:42
PROVIDERS: ATTEND Specialist
DX: M50.30 Other cervical disc degeneration, unspecified cervical region (principal); M48.02 Spinal stenosis, cervical region; M41.9 Scoliosis, unspecified; M47.812 Spondylosis without myelopathy or radiculopathy, cervical region; J45.909 Unspecified asthma, uncomplicated; Z88.5 Allergy status to narcotic agent; Z88.1 Allergy status to other antibiotic agents
CPT/HCPCS: 99211

== ENCOUNTER → 2022-03-10 | Outpatient (CLI) | payer MEDICARE, OTHER ==
[2022-03-10 10:21] LABS: Partial Thromboplastin Time 25.2 sec (22.0-30.0); Prothrombin Time 11.2 sec (9.0-12.0)
[2022-03-10 16:09] LABS: Basophils # (A) 0.01 X 10*3/uL (0.00-0.10); Basophils % (A) 0.3 %; Eosinophils # (A) 0.16 X 10*3/uL (0.04-0.35); Eosinophils % (A) 4.6 %; HCT 38.2 % (37.2-46.3); HGB 12.2 g/dL (12.0-15.0); Immature Grans, Automated 0.3 %; Lymphocytes # (A) 0.79 X 10*3/uL (0.90-5.00); Lymphocytes % (A) 22.8 %; MCH 30.1 pg (27.0-32.0); MCHC 31.9 g/dL (32.0-37.0); MCV 94.3 fL (80.0-97.0); Mean Platelet Volume 10.7 fL (9.5-12.2); Monocytes # (A) 0.53 X 10*3/uL (0.20-1.00); Monocytes % (A) 15.3 %; NRBC Per 100 WBC 0 /100 WBCS (0.0-0.0); Neutrophils # (A) 1.97 X 10*3/uL (1.80-7.70); Neutrophils % (A) 56.7 %; Platelet Count 187 X 10*3/uL (140-440); RBC 4.05 X 10*6/uL (4.10-5.20); RDW 13.1 % (11.5-14.5); WBC 3.47 X 10*3/uL (4.50-10.00)
[2022-03-10 16:13] LABS: Appearance,Urine Clear (Clear); Bilirubin,Urine Negative (Negative); Blood,Urine Negative (Negative); Color,Urine Yellow (Yellow); Ketones,Urine Trace mg/dL (Negative); Nitrite,Urine Negative (Negative); PH, Urine 6.5 (5.0-8.0); Specific Gravity,Urine 1.019 (1.001-1.030); Urobilinogen,Urine 0.2 (0.2,1.0)
[2022-03-10 16:17] LABS: Bacteria,Urine None Seen /HPF (None Seen)
[2022-03-10 16:19] LABS: African American GFR (CKD) 74.6 (60.0-200.0); BUN/Creat Ratio 26.67 Ratio (12.00-20.00); Calcium 9.3 mg/dL (8.7-10.3); Non-African American GFR(CKD) 64.3 (60.0-200.0); Potassium 3.8 mmol/L (3.5-5.5)
== END | disposition home or self-care (01) ==
LOC: LABPAT 08:26
PROVIDERS: ATTEND Orthopaedic Surgery Orthopaedic Surgery of the Spine
DX: Z01.818 Encounter for other preprocedural examination (principal); M54.2 Cervicalgia
CPT/HCPCS: 36415; 80048; 81001; 85025; 85610; 85730; 93005

== ENCOUNTER 2022-03-29 06:43 | Day surgery (SDC) | payer MEDICARE, OTHER ==
[2022-03-28 08:59] VITALS: BMI 30.2
[~2022-03-29 06:43] MED LIST: LIDOCAINE 1% (10MG/ML) FOR IV START INTRADERMA PRN; ONDANSETRON 4 MG/2 ML VIAL IVP ONE; ceFAZolin 1,000 MG in SODIUM CHLORIDE 0.9% IRRIGATIO 1,000 ML IRRIGATION PRN
[2022-03-29] MEDS ORDERED: fentaNYL (PF) 50 MCG/ML 2 ML AMP IV PRN (07:00)
[2022-03-29] MEDS: LACTATED RINGERS 1,000 ML IV SCH (07:18)
[2022-03-29] MEDS ORDERED: SUCCINYLCHOLINE CHLORIDE 100 MG/5 ML SYR IV ONE (07:51)
[2022-03-29] MEDS ORDERED: HYDROmorphone (PF) 1 MG/ML ONE ×2 (07:51)
[2022-03-29] MEDS ORDERED: SUCCINYLCHOLINE CHLORIDE VIAL 200 MG/10 ML VIAL IV ONE (07:51)
[2022-03-29] MEDS ORDERED: MIDAZOLAM 2 MG/2 ML VIAL ONE ×2 (07:51)
[2022-03-29] MEDS ORDERED: ePHEDrine 50 MG/ML 1 ML VIAL ONE ×2 (07:51)
[2022-03-29] MEDS ORDERED: fentaNYL (PF) 50 MCG/ML 2 ML AMP ONE ×2 (07:51)
[2022-03-29] MEDS ORDERED: DEXAMETHASONE SOD PHOSPHATE 10 MG/ML 1 ML VIAL ONE ×2 (07:51)
[2022-03-29] MEDS ORDERED: PHENYLEPHRINE-0.9% NACL SYG 1,000 MCG/10 ML SYRINGE ONE ×2 (07:51)
[2022-03-29] MEDS ORDERED: ROCURONIUM 10 MG/ML (5 ML VIAL) IV ONE ×2 (07:51)
[2022-03-29] MEDS ORDERED: LIDOCAINE 2% INJ 20 MG/ML (2 ML VIAL) ONE ×2 (07:51)
[2022-03-29] MEDS ORDERED: GLYCOPYRROLATE 0.2 MG/ML 2 ML VIAL ONE ×2 (07:51)
[2022-03-29] MEDS ORDERED: PROPOFOL 10 MG/ML 20 ML VIAL IV ONE ×2 (07:51)
[2022-03-29] MEDS ORDERED: NEOSTIGMINE 1 MG/ML 10 ML VIAL ONE ×2 (07:51)
[2022-03-29] MEDS ORDERED: THROMBIN (BOVINE) 5,000 UNIT VIAL TOPICAL ONE (08:00)
[2022-03-29] MEDS ORDERED: LIDOCAINE 0.5%-EPI 1:200,000 50 ML VIAL SQ ONE (08:00)
[2022-03-29] MEDS ORDERED: GELATIN SPONGE,ABSORB (LARGE) 1 EACH SPONGE TOPICAL ONE (08:00)
--- NOTE | 2022-03-29 09:31 | XR ---
Cervical spine 1 view HISTORY: Needle placement, degenerative disc disease Single lateral view the cervical spine submitted Endotracheal tube is noted. There are overlying artifacts. Reversal cervical lordosis is present. Los s of disc height is present at C5-6, C6-7 with associated spondylosis, the entire cervical spine not seen due to technique. There is a needle placement at the C5-6 level. Bone mineralization overall is reduced. Facet arthropathy changes are present. IMPRESSION: Orthopedic localization
[2022-03-29] MEDS ORDERED: BENZOCAINE/MENTHOL LOZENG 1 EACH LOZENGE MUCOUS MEM PRN (10:15)
[2022-03-29] MEDS ORDERED: HYDROcodone/APAP 5-325MG 1 EACH TAB PO PRN (10:15)
[2022-03-29] MEDS ORDERED: ONDANSETRON 4 MG/2 ML VIAL IVP PRN (10:16)
[2022-03-29] MEDS ORDERED: traMADol 50 MG TAB PO PRN (10:16)
[2022-03-29] MEDS ORDERED: ALBUTEROL NEBULIZED 2.5 MG/3 ML INHALATION PRN (10:18)
--- NOTE | 2022-03-29 10:23 | P.OP ---
Date of Procedure: 03/29/22 Preoperative Diagnosis: Severe cervical stenosis, herniated nucleus pulposis C4 5 C5 6 C6 7, cervical kyphosis, degenerative disc disease, neck pain, upper extremity radiculopathy Postoperative Diagnosis: Same Anesthesia: GETA Pathology: none sent Condition: stable Disposition: PACU Description of Procedure: BRIEF OPERATIVE NOTE Preoperative Diagnosis:Severe cervical stenosis, herniated nucleus pulposis C4 5 C5 6 C6 7, cervical kyphosis, degenerative disc disease, neck pain, upper extremity radiculopathy Postoperative Diagnosis:Severe cervical stenosis, herniated nucleus pulposis C4 5 C5 6 C6 7, cervical kyphosis, degenerative disc disease, neck pain, upper extremity radiculopathy Procedure: Anterior cervical decompression with discectomy and fusion C4 5 C5 6 C6 7 Removal of large anterior cervical osteophyte C4 5 C5 6 C6 7 Placement of interbody graft C4 5 C5 6 C6 7 Application of anterior cervical plate C4 5 6 and 7 Surgeon: Dr. Camp Telecommunications Clerk: Antoni Duarte is present throughout the entire the case persistence during positioning, dissection, exposure, visualization, and all crucial elements of the case as well as closure. Anesthesia: General anesthesia per Dr. Sequeira Estimated blood loss: Approximately 100 mL Complications: None apparent Components implanted: K2M striker [place] anterior cervical plate system with plate and 8 screws with Vikos interbody autograft bone graft and 1 mL of DBX bone putty Disposition: To recovery room in good stable condition. OPERATIVE INDICATIONS The patient has had long-standing issues in their neck and upper extremities. She is having worsening pain in her neck with numbness tingling or upper extremities with some radicular symptoms and an significant headaches and neck pain. She does not have severe disc degeneration at her cervical spine with large osteophytes severe stenosis which correlated well with her neck and upper extremity symptoms The patient has been through conservative treatment. She is not having a prolonged benefit despite aggressive conservative care. We discussed various treatment options including surgery, and the patient wishes to proceed with surgery We discussed the risk, patient's alternatives and benefits of surgery including but not limited to, risk of bleeding risk of infection, risk of need for further surgery, risk of decreased, loss of motion, muscle function, malunion nonunion, hardware failure, nerve damage, paralysis, heart attack, and . OPERATIVE SUMMARY After discussing all the risks, patient alternatives and benefits at length, the patient elected to proceed with surgical intervention, signed informed consent, and presented for their procedure. The patient was seen and examined in the preoperative holding area and the surgical site was marked. The patient was given antibiotics and brought to the operating room. The patient was positioned on the operating room table in a supine position being careful to pad any bony prominences and pressure points. The patient was sedated and intubated by anesthesia in standard fashion. Once the airway and C- spine were stabilized the patient's arms were padded and tucked at her side, with her shoulders gently taped. The head was placed in a donut pad with the neck in good neutral alignment and position. We were careful to maintain the patient's cervical spine and good neutral alignment and position throughout. The patient was prepped and draped in a normal standard fashion. An appropriate timeout and keystone protocol performed. We were able to proceed with the surgery. The local wound area was infiltrated with local anesthetic. An incision was made transversely approximately 2-1/2 cm over the appropriate levels at C5 6. Dissection was taken down subcutaneously to the level of the platysma which was split in line with its fibers. Dissection was taken with a carotid approach, with the trachea and esophagus medial and the carotid sheath laterally. We dissected down to the anterior surface of the vertebral bodies at C4 5 6 and 7. Intraoperative x-ray was taken which showed a marker at the appropriate level of C5 6. With the appropriate level positively confirmed, we were able to proceed with discectomy at the appropriate levels. There is very obvious large anterior osteophytes particular at C5 6 and C6 7 which were taken down and the anterior vertebral bodies were contoured appropriately. All of the operative levels were exposed appropriately. The patient had all their twitches back, and there was no evidence of recurrent laryngeal issue. The wound was copiously irrigated and suctioned dry as had been done periodically throughout the case. At the appropriate level/levels, starting at C6 7 then moving to C5 6 and then the C4 5, I established an annulotomy with an 11 blade scalpel. A discectomy was performed with a combination of pituitary rongeurs, curettes, a high-speed bur, and Kerrison rongeurs. There is severe and near-complete disc height loss particular at C6 7 and C5 6 there were osteophytes posteriorly at each level as well and significant disc degeneration at each level. The posterior longitudinal ligament was taken down as were any posterior osteophytes. This gave good central and bilateral foraminal decompression. There is no evidence of any dural tear or leak. The endplates were prepared with a high-speed bur. With the endplates in good parallel position, I was able to size for the appropriate size interbody graft. The wound was irrigated and suctioned dry the graft was prepared and malleted into position. It had good alignment and position with the anterior surface flush with the anterior surface of the vertebral bodies. This was done similarly the appropriate levels, first at C6 7 then at C5 6 and then at C4 5. With the grafts intact, I was able to measure and contour and appropriate sized plate. The plate was positioned at the midline over the appropriate levels from C4 to 7. Screw holes were established with a hand drill and drill guide. Screws were placed in good alignment and position with excellent bony purchase. They were seated under the locking device. The construct was checked and found to be stable. Intraoperative x-ray was taken which showed good alignment and position of the implants at the appropriate levels. There was no evidence of any dural tear or leak. Good hemostasis was maintained. The wound was copiously irrigated and suctioned dry as had been done periodically throughout the case. The platysma was closed with absorbable suture. The subcutaneous tissue was closed. The subcuticular tissue was closed with absorbable suture. The wound was cleaned and dried and dressed appropriately. A soft cervical collar was placed appropriately. The patient was woken up by anesthesia, extubated, transferred back gently to their hospital bed and brought to the recovery room in good stable condition. The patient will be admitted to the hospital for appropriate postoperative care, medical management and monitoring. We will continue to follow them closely about the postoperative course.
[2022-03-29] MEDS ORDERED: ONDANSETRON 4 MG/2 ML VIAL IVP ONE (11:06)
[2022-03-29] MEDS ORDERED: diphenhydrAMINE 50 MG/ML 1 ML VIAL IVP ONE (11:15)
[2022-03-29] MEDS ORDERED: LACTATED RINGERS 1,000 ML IV ONE ×2 (11:16)
[2022-03-29] MEDS ORDERED: CYCLOBENZAPRINE 5 MG TAB PO PRN (11:37)
[2022-03-29] MEDS: HYDROmorphone 0.5 MG/0.5 ML SYRINGE IVP PRN ×2 (11:53→13:30)
--- NOTE | 2022-03-29 13:27 | XR ---
Cervical spine 1 view HISTORY: Status post anterior cervical fusion and discectomy Correlation to prior cervical spine same dated earlier time Patient is status post anterior cervical fusion and discectomy at C4-C7, intervertebral spacing block s are present. Alignment is near-anatomic, anterolisthesis grade 1 C2-3, C3-4 similar to prefixation exam. Endotracheal tube is in place. C7-T1 not seen. Some facet arthropathy changes are present. Bone mineralization is reduced. IMPRESSION: Postop changes. Additional findings above, orthopedic follow-up
[2022-03-29] MEDS ORDERED: CYCLOBENZAPRINE 5 MG TAB PO SCH (16:00)
[2022-03-29] MEDS: SODIUM CHLORIDE 0.9% 1,000 ML IV SCH (16:01)
[2022-03-29] MEDS: ACETAMINOPHEN TAB 325 MG TAB PO SCH (17:06)
[2022-03-29] MEDS: PILOCARPINE 5 MG TAB PO SCH (20:50)
[2022-03-30] MEDS: SODIUM CHLORIDE 0.9% 1,000 ML IV SCH (00:06)
[2022-03-30] MEDS: ACETAMINOPHEN TAB 325 MG TAB PO SCH ×2 (00:09→05:31)
[2022-03-30] MEDS: PILOCARPINE 5 MG TAB PO SCH (07:16)
[2022-03-30] MEDS: LACTATED RINGERS 1,000 ML IV SCH (07:22)
[2022-03-30] MEDS ORDERED: PANTOPRAZOLE 40 MG TABLET PO SCH (07:30)
[2022-03-30 07:40] VITALS: BP 155/78; PULSE 74; RESP 17; TEMP 97.8
--- NOTE | 2022-03-30 08:02 | P.DS ---
Providers Date of admission: 03/29/22 Attending physician: Jarett Camp Primary care physician: [facility] Course: The patient presented on the day of admission as per their operative note. She had severe cervical stenosis with degenerative disc disease upper extremity radiculopathy and back pain and underwent anterior cervical decompression with discectomy and fusion as per her operative note. Today she feels like she is doing very well. She feels her arms have made good improvement. She is comfortable with her neck and she is eating her soft foods well. Physical Exam The incision site is clean dry and intact. There is no erythema no drainage. There is no purulence no evidence of infection. Neck is soft and supple without any significant swelling Abdomen soft and nontender. Chest has good excursion with deep inspiration and expiration. The patient has active and passive range of motion intact at the upper and lower extremities. There is no acute change in neurologic status. She has good motion at her upper extremities Hospital Course Postoperative day 1 status post anterior cervical decompression with discectomy and fusion C4 5 C5 6 C6 7 for her cervical stenosis with degenerative disc disease upper extremity radiculopathy and neck pain The patient is doing well and is happy with results thus far. The patient has been making good progress postoperatively. They have completed the prophylactic antibiotics without any signs or symptoms of infection. The patient has been able to advance their diet, and is tolerating diet adequately. The pain was initially controlled with IV medications and is now controlled appropriately with oral medications. The patient has been able to increase their mobilization. The patient has progressed appropriately. I think they are in good stable condition for discharge today. They will be sent home with appropriate prescriptions. I answered their questions to the best of my ability in a language that they can understand and they are agreeable with the plan. They will follow up as directed in approximately 2 weeks or sooner if she is having any problems. Patient Condition at Discharge: Good Plan - Discharge Summary Discharge Rx Participant: Yes New Discharge Prescriptions: New traMADol HCL [Ultram] 50 mg PO Q6HR PRN 3 Days #28 tab PRN Reason: Pain No Action Meloxicam [Mobic] 15 mg PO DAILY Losartan Potassium [Cozaar] 100 mg PO QAM amLODIPine BESYLATE [Norvasc] 10 mg PO QAM Hydroxychloroquine Sulfate [Plaquenil] 200 mg PO BID Atorvastatin [Lipitor] 10 mg PO QAM Pilocarpine HCl [Salagen] 5 mg PO BID Lansoprazole [Prevacid] 30 mg PO DAILY Albuterol Nebulized [Ventolin Nebulized] 2.5 mg INHALATION TID PRN PRN Reason: Astma Flare Up Discharge Medication List Atorvastatin [Lipitor] 10 mg PO QAM 05/14/17 [History] Hydroxychloroquine Sulfate [Plaquenil] 200 mg PO BID 05/14/17 [History] Losartan Potassium [Cozaar] 100 mg PO QAM 05/14/17 [History] Meloxicam [Mobic] 15 mg PO DAILY 05/14/17 [History] Pilocarpine HCl [Salagen] 5 mg PO BID 05/14/17 [History] amLODIPine BESYLATE [Norvasc] 10 mg PO QAM 05/14/17 [History] Albuterol Nebulized [Ventolin Nebulized] 2.5 mg INHALATION TID PRN 01/27/22 [History] Lansoprazole [Prevacid] 30 mg PO DAILY 03/28/22 [History] traMADol HCL [Ultram] 50 mg PO Q6HR PRN 3 Days #28 tab 03/30/22 [Rx] Follow up Appointment(s)/Referral(s): Jarett Camp DO [Doctor of Osteopathic Medicine] - 2 Weeks Activity/Diet/Wound Care/Special Instructions: Keep site clean. May shower with waterproof Tegaderm intact. Do not soak in a tub. After 72 hours postoperatively, patient May remove dressing and then may shower with area uncovered. Leave glue intact and allow it to fray off on its own. May ambulate as tolerated. Avoid heavy or rigorous activity. No repetitive bending twisting or lifting. No overhead work. Discharge Disposition: HOME SELF-CARE
[2022-03-30] MEDS ORDERED: amLODIPine 10 MG TAB PO SCH (09:00)
[2022-03-30] MEDS ORDERED: ATORVASTATIN 10 MG TAB PO SCH (09:00)
[2022-03-30] MEDS ORDERED: LOSARTAN 50 MG TAB PO SCH (09:00)
[2022-03-30] MEDS ORDERED: HYDROXYCHLOROQUINE SULFATE 200 MG TAB PO SCH (09:00)
[2022-03-30] MEDS ORDERED: SENNOSIDES-DOCUSATE SODIUM 1 EACH TAB PO SCH (09:00)
== END 2022-03-30 12:28 | disposition home or self-care (01) ==
LOC: OR 06:43 → 4SSUR 13:47 → OR 03-30 12:28
PROVIDERS: ATTEND Orthopaedic Surgery Orthopaedic Surgery of the Spine
DX: M54.2 Cervicalgia (principal); M48.02 Spinal stenosis, cervical region; M50.121 Cervical disc disorder at C4-C5 level with radiculopathy; M40.202 Unspecified kyphosis, cervical region; M50.10 Cervical disc disorder with radiculopathy, unspecified cervical region; M25.78 Osteophyte, vertebrae; I10 Essential (primary) hypertension; M32.9 Systemic lupus erythematosus, unspecified; M35.00 Sjogren syndrome, unspecified; H91.90 Unspecified hearing loss, unspecified ear; Z85.72 Personal history of non-Hodgkin lymphomas; Z96.651 Presence of right artificial knee joint; Z82.49 Family history of ischemic heart disease and other diseases of the circulatory system; E66.9 Obesity, unspecified; Z68.31 Body mass index [BMI] 31.0-31.9, adult; Z79.1 Long term (current) use of non-steroidal anti-inflammatories (NSAID); Z79.899 Other long term (current) drug therapy; Z88.3 Allergy status to other anti-infective agents; Z88.5 Allergy status to narcotic agent
CPT/HCPCS: 86900; 86901; 86850; 72020; 36415; 22551; 22552 ×2; 22845; 20938; C1713 ×2; C1762 ×2; J2250; J0330 ×2; J1200; J1100; J2710; J0690 ×3; J2405; J3010; J1170 ×2; J2370; J2704; J2001

== ENCOUNTER 2022-08-10 11:27 | Day surgery (SDC) | payer MEDICARE, OTHER ==
[~2022-08-10 11:27] MED LIST changes: +ALBUTEROL NEB (CONC) 2.5 MG/0.5 ML INHALATION ONE; +LACTATED RINGERS 1,000 ML IV SCH; -LIDOCAINE 1% (10MG/ML) FOR IV START INTRADERMA PRN; +LIDOCAINE 2% (PF) 20 MG/ML 5 ML VIAL INHALATION ONE; +LIDOCAINE VISCOUS 300 MG/15 ML CUP MUCOUS MEM ONE; -ONDANSETRON 4 MG/2 ML VIAL IVP ONE; -ceFAZolin 1,000 MG in SODIUM CHLORIDE 0.9% IRRIGATIO 1,000 ML IRRIGATION PRN
[2022-08-10 12:20] VITALS: TEMP 97.6
[2022-08-10] MEDS ORDERED: LACTATED RINGERS 1,000 ML IV ONE (12:30)
[2022-08-10] MEDS ORDERED: fentaNYL (PF) 50 MCG/ML 2 ML AMP ONE (12:43)
[2022-08-10] MEDS ORDERED: LIDOCAINE 2% INJ 20 MG/ML (2 ML VIAL) ONE (12:43)
[2022-08-10] MEDS ORDERED: PROPOFOL 10 MG/ML 20 ML VIAL IV ONE (12:43)
[2022-08-10] MEDS ORDERED: MIDAZOLAM 2 MG/2 ML VIAL ONE (12:43)
[2022-08-10] MEDS ORDERED: LIDOCAINE 2% INJ 20 MG/ML INTRATRACH ONE (13:19)
--- NOTE | 2022-08-10 13:21 | P.PCN ---
Date of Procedure: 08/10/22 Preoperative Diagnosis: Bilateral pulmonary infiltrates Postoperative Diagnosis: Bilateral pulmonary infiltrates Procedure(s) Performed: Flexible bronchoscopy and the bronchial alveolar lavage of the right middle lobe Anesthesia: LIZZETH Surgeon: Ayana Guzmán Actuary Manager #2: Maryse Fraire Pathology: none sent Condition: stable Disposition: same day Operative Findings: 72-year-old female patient with history of Sjogren's disease with yellow bilateral chin but pulmonary infiltrates on the most recent CAT scan of the chest. Based on that, etiologies such as fungi isolated microbacterium was considered that a bronchoscopy was accordingly done. This procedure was done under conscious sedation. Anesthetic agents was given by ENERGY CONSERVATION ENGINEER. The patient was given propofol for sedation. This procedure was done while the patient was on oxygen by nasal cannula 10 L. She maintain adequate oxygenation throughout the procedure. The patient gave her consent. The flexible bronchoscope was introduced through the right nostril and was advanced into the posterior pharynx and later to the larynx. Upper airway structures were all inspected. The posterior oropharynx of the larynx and epiglottis and the vocal cords were all within normal limits. The arytenoids, vallecula and the floors at all within normal limits. A total of 2 mL of 1% lidocaine was applied to the vocal cords visualized of the flexible bronchoscope was introduced to the upper trachea. Examination of the bronchial tree with him. Examination of the entire trachea, garcia, bilateral mainstem bronchi, right upper lobe bronchus, bronchus intermedius, right middle lobe bronchus and right lower lobe bronchus and the various segments of the right and examination of the left included the left mainstem bronchus, left upper lobe bronchus and left lower lobe bronchus and the various segments on the left. No significant abnormalities were identified and the patient's mucosa was within normal limits. No significant inflammation. Mucosa looks healthy within normal limits. No foreign bodies. The bronchoscope was then removed to the right middle lobe as well as right and a bronchial lavage was done. A total of 60 mL of fluid was infused into the right middle lobe lateral segment and around 25 mL was aspirat ed. The aspirate was nonbloody. At the completion of the procedure, a therapeutic airway suctioning was done. The bronchoscope was removed. The patient was transferred to recovery in stable condition. Samples will be sent for microbial cultures
[2022-08-10 13:31] VITALS: RESP 18
[2022-08-10 13:56] VITALS: BP 133/76; PULSE 73
[2022-08-11 05:01] LABS: Appearance,BF Slightly Hazy
== END 2022-08-10 14:43 | disposition home or self-care (01) ==
LOC: ORWHC2ENDO 11:27
PROVIDERS: ATTEND Internal Medicine Critical Care Medicine
DX: R91.8 Other nonspecific abnormal finding of lung field (principal); M50.30 Other cervical disc degeneration, unspecified cervical region; H35.30 Unspecified macular degeneration; M35.00 Sjogren syndrome, unspecified; G51.0 Bell's palsy; I10 Essential (primary) hypertension; E78.5 Hyperlipidemia, unspecified; Z98.1 Arthrodesis status; Z96.651 Presence of right artificial knee joint; Z98.890 Other specified postprocedural states; K21.9 Gastro-esophageal reflux disease without esophagitis; M19.90 Unspecified osteoarthritis, unspecified site; I80.9 Phlebitis and thrombophlebitis of unspecified site; M32.9 Systemic lupus erythematosus, unspecified; Z85.72 Personal history of non-Hodgkin lymphomas; Z83.3 Family history of diabetes mellitus; Z82.49 Family history of ischemic heart disease and other diseases of the circulatory system; Z79.1 Long term (current) use of non-steroidal anti-inflammatories (NSAID); Z79.51 Long term (current) use of inhaled steroids; Z79.899 Other long term (current) drug therapy; Z88.1 Allergy status to other antibiotic agents; Z88.5 Allergy status to narcotic agent; Z91.09 Other allergy status, other than to drugs and biological substances
CPT/HCPCS: 87798 ×3; 87496; 87498; 87529; 88108; 88305; 89050; 87252; 87502; 87634; 87070; 87205; 87116; 87102; 87077; 87186; 87206; 31624; J2001 ×2; J2250; J3010; J2704

== ENCOUNTER → 2022-11-13 | Outpatient (CLI) | payer MEDICARE, OTHER ==
[2022-11-13 10:30] LABS: African American GFR (CKD) >90 (>60 ml/min/1.73 sqM); Blood Urea Nitrogen 19 mg/dL (7-17); Non-African American GFR(CKD) 85 (>60 ml/min/1.73 sqM)
--- NOTE | 2022-11-13 16:17 | CT ---
EXAMINATION TYPE: CT chest w con DATE OF EXAM: 11/13/2022 COMPARISON: 03/22/2012 HISTORY: Chest pain CT DLP: 430 mGycm, Automated exposure control for dose reduction was used. CONTRAST: Performed injected with 70 ml mL of Isovue 300. TECHNIQUE: Axial images were obtained at 5 mm thick sections. Reconstructed images are reviewed on [employer]addle computer in the coronal plane. FINDINGS: Portion of the thyroid visualized is normal. There is a small area of increased density measuring 0.6 cm in the posterior lateral right midlung. S eries 4 image 35. Some mild pneumonitis-type changes may be along the right mid major fissure. Findin gs are new from 2012. No enlarged mediastinal or hilar adenopathy is evident. The ascending aorta diameter at the level o f the main pulmonary artery is 3.2 cm. The main pulmonary artery diameter at the bifurcation is 2.[address] sections are obtained through the upper abdomen. Abdomen is essentially unremarkable. IMPRESSIONS: 1. New small nodule and pneumonitis-type change along the mid right lung field.
== END | disposition home or self-care (01) ==
LOC: RADCTMAIN 09:48
PROVIDERS: ATTEND Internal Medicine Critical Care Medicine
DX: J18.9 Pneumonia, unspecified organism (principal); R91.1 Solitary pulmonary nodule
CPT/HCPCS: 82565; 84520; 71260; 36415; Q9967

== ENCOUNTER → 2023-02-16 | Outpatient (CLI) | payer MEDICARE, OTHER ==
--- NOTE | 2023-02-16 14:52 | CT ---
EXAMINATION TYPE: CT chest w con DATE OF EXAM: 02/16/2023 COMPARISON: Chest CT November 13, 2022 and older studies. HISTORY: chest pain, hx of lymphoma. CT DLP: 481 mGycm. Automated Exposure Control for Dose Reduction was Utilized. TECHNIQUE: CT scan of the thorax is performed following with IV Contrast, patient injected with 100 mL of Isovue 300. FINDINGS: LUNGS: Some focal scarring in the right middle lobe along the fissure is redemonstrated. Stable 5 x 3 mm peripheral nodular scarring in the right lower lobe axial image 37. No new or enlarging greater than 5 mm pulmonary nodules. Left lung remains clear. There is no pleural effusion or pneumothorax se en. The tracheobronchial tree is patent. MEDIASTINUM: There are no greater than 1 cm hilar or mediastinal lymph nodes. No cardiomegaly or pe ricardial effusion is seen. Somewhat small size thyroid redemonstrated. OTHER: Prominent but subcentimeter bilateral axillary lymph nodes are again seen. IMPRESSION: No acute findings are seen. No significant change from most recent prior CT.
== END | disposition home or self-care (01) ==
LOC: RADCTMAIN 12:18
PROVIDERS: ATTEND Internal Medicine Critical Care Medicine
DX: R07.9 Chest pain, unspecified (principal)
CPT/HCPCS: 82565; 84520; 71260; 36415; Q9967

== ENCOUNTER → 2023-02-20 | Outpatient (CLI) | payer MEDICARE, OTHER | END | disposition home or self-care (01) | LOC: LABWHC1 08:15 | PROVIDERS: ATTEND Internal Medicine Critical Care Medicine | DX: Z86.14 Personal history of Methicillin resistant Staphylococcus aureus infection (principal) | CPT/HCPCS: 87070 ==

== ENCOUNTER → 2023-03-20 | Outpatient (CLI) | payer MEDICARE, OTHER ==
[2023-03-20 10:20] LABS: Creatinine,Urine Random 163.9 mg/dL; Protein/Creatinine Ratio,Urine 0.037
[2023-03-20 12:53] LABS: Appearance,Urine Clear (Clear); Bilirubin,Urine Negative (Negative); Blood,Urine Negative (Negative); Color,Urine Yellow; Glucose,Urine (UA) Negative (Negative); Ketones,Urine Negative (Negative); Leukocyte Esterase,Urine Negative (Negative); Nitrite,Urine Negative (Negative); PH, Urine 6.5 (5.0-8.0); Protein,Urine Trace (Negative); Specific Gravity,Urine 1.027 (1.001-1.035)
[2023-03-20 15:07] LABS: Basophils # (A) 0.03 X 10*3/uL (0.00-0.10); Basophils % (A) 0.6 %; Eosinophils # (A) 0.16 X 10*3/uL (0.04-0.35); HCT 38.9 % (37.2-46.3); HGB 12.8 g/dL (12.0-15.0); Immature Grans, Automated 0.4 %; Lymphocytes # (A) 0.87 X 10*3/uL (0.90-5.00); Lymphocytes % (A) 16.5 %; MCH 30.5 pg (27.0-32.0); MCHC 32.9 g/dL (32.0-37.0); MCV 92.8 fL (80.0-97.0); Mean Platelet Volume 10.3 fL (9.5-12.2); Monocytes # (A) 0.66 X 10*3/uL (0.20-1.00); Monocytes % (A) 12.5 %; NRBC Per 100 WBC 0 /100 WBCS (0.0-0.0); Neutrophils # (A) 3.52 X 10*3/uL (1.80-7.70); Platelet Count 240 X 10*3/uL (140-440); RBC 4.19 X 10*6/uL (4.10-5.20); RDW 14.1 % (11.5-14.5); WBC 5.26 X 10*3/uL (4.50-10.00)
[2023-03-20 15:30] LABS: Protein, Total 6.8 g/dL (6.2-8.2)
[2023-03-20 15:37] LABS: ALT 24 U/L (8-44); AST 25 U/L (13-35); African American GFR (CKD) 82.4 (60.0-200.0); Albumin 4.4 g/dL (3.8-4.9); Albumin/Globulin Ratio 1.73 (1.60-3.17); Alkaline Phosphatase 112 U/L (41-126); BUN/Creat Ratio 24.51 Ratio (12.00-20.00); Blood Urea Nitrogen 20.2 mg/dL (9.0-27.0); C Reactive Protein <0.30 mg/dL (0.00-0.80); Calcium 9.3 mg/dL (8.7-10.3); Carbon Dioxide 25.5 mmol/L (20.0-27.5); Chloride 102 mmol/L (96-109); Globulin 2.5 g/dL (1.6-3.3); Glucose 94 mg/dL (70-110); Non-African American GFR(CKD) 71.1 (60.0-200.0); Potassium 4.4 mmol/L (3.5-5.5); Sodium 135 mmol/L (135-145); Total Protein 6.9 g/dL (6.2-8.2)
[2023-03-20 15:49] LABS: Erythrocyte Sedimentation Rate 10 mm/Hr (0-30)
[2023-03-21 17:11] LABS: Albumin 3.99 g/dL (3.80-4.90); Gamma Globulin 1.14 g/dL (0.70-1.50)
== END | disposition home or self-care (01) ==
LOC: LABWHC1 08:38
PROVIDERS: ATTEND Internal Medicine
DX: M35.01 Sjogren syndrome with keratoconjunctivitis (principal)
CPT/HCPCS: 36415; 80053; 81003; 82570; 84156; 84165; 85025; 85652; 86140; 86160

== ENCOUNTER → 2023-04-24 | Outpatient (CLI) | payer MEDICARE, OTHER ==
--- NOTE | 2023-04-24 09:03 | US ---
EXAMINATION TYPE: US abdomen limited DATE OF EXAM: 04/24/2023 COMPARISON: 11/13/2022 CT chest CLINICAL INDICATION: Female, 72 years old with history of R10.11 RUQ PAIN; Pt states ABD pressure RUQ x 6 months TECHNIQUE: Multiple sonographic images of the right upper quadrant are obtained. FINDINGS: EXAM MEASUREMENTS: Liver Length: 14.9 cm Gallbladder Wall: 0.2 cm CBD: 0.5 cm Right Kidney: 10.7 x 4.8 x 5.2 cm Pancreas: wnl, tail obscured by overlying bowel gas Liver: Echogenic lesion left lateral lobe= 0.9 x 0.8 x 1.3 cm Gallbladder: wnl Evidence for sonographic Randall's sign: No CBD: wnl Right Kidney: wnl IMPRESSION: Suspected hyperechoic lesion within the liver likely representing hemangioma. In the left hepatic lob es similar to 11/13/2022 CT.
== END | disposition home or self-care (01) ==
LOC: RADUSWWP 07:44
PROVIDERS: ATTEND Internal Medicine Gastroenterology
DX: R10.11 Right upper quadrant pain (principal)
CPT/HCPCS: 76705

== ENCOUNTER → 2023-08-14 | Outpatient (CLI) | payer MEDICARE ==
[2023-08-14 15:00] LABS: African American GFR (CKD) 77 (>60 ml/min/1.73 sqM); Blood Urea Nitrogen 30 mg/dL (7-17); Non-African American GFR(CKD) 66 (>60 ml/min/1.73 sqM)
--- NOTE | 2023-08-17 10:16 | CT ---
EXAMINATION TYPE: CT iac w con DATE OF EXAM: 08/14/2023 COMPARISON: None HISTORY: chronic otitis media. Left side worse. CT DLP: 150.0 mGycm Automated exposure control for dose reduction was used. Contrast: 80 mL Isovue 370 Technique: Axial images 1 mm thick sections through the internal auditory canals. Reconstructed image s in the coronal and sagittal planes. Study is performed intravenous contrast. FINDINGS: There is been prior uncinectomies. Mucosal thickening is through the left maxillary sinus. Ethmoidect omies are present. The sphenoid sinuses and visualized portions of the frontal sinuses are clear. Right temporal mandibular junction degenerative changes are present. Incus and malleus have normal orientation. The prior left mastoidectomy. Some minimal fluid or mucosa l thickening is within the anterior petrous ridge medial to the right malleus. Cochlea are normal. Semicircular canals are normal. Internal auditory canals are normal. No expansion or erosion is evident. Remaining mastoid air cells appear well aerated. Middle ears appear clear. External auditory canals a ppear clear. IMPRESSION: 1. MINIMAL MUCOSAL THICKENING WITHOUT COMPLETE OPACIFICATION WITHIN THE ATTICS, LEFT MORE SO THAN RIG HT.
== END | disposition home or self-care (01) ==
LOC: RADCTMAIN 13:38
PROVIDERS: ATTEND Otolaryngology
DX: H65.492 Other chronic nonsuppurative otitis media, left ear (principal); J34.89 Other specified disorders of nose and nasal sinuses
CPT/HCPCS: 82565; 84520; 70481; Q9967

== ENCOUNTER → 2024-04-14 | Outpatient (CLI) | payer MEDICARE, OTHER ==
[2024-04-14 10:13] LABS: Appearance,Urine Clear (Clear); Bilirubin,Urine Negative (Negative); Blood,Urine Negative (Negative); Color,Urine Yellow (Yellow); Ketones,Urine Negative (Negative); Nitrite,Urine Negative (Negative); PH, Urine 7.5; Specific Gravity,Urine 1.018 (1.001-1.030)
[2024-04-14 10:18] LABS: Bacteria,Urine None Seen (None Seen)
[2024-04-14 10:20] LABS: Basophils # (A) 0.03 X 10*3/uL (0.00-0.10); Basophils % (A) 0.7 %; Eosinophils # (A) 0.15 X 10*3/uL (0.04-0.35); Eosinophils % (A) 3.6 %; HCT 41.6 % (37.2-46.3); HGB 13.5 g/dL (12.0-15.0); Lymphocytes % (A) 28.8 %; MCH 30.9 pg (27.0-32.0); MCHC 32.5 g/dL (32.0-37.0); MCV 95.2 FL (80.0-97.0); Mean Platelet Volume 10.4 FL (9.5-12.2); Monocytes # (A) 0.65 X 10*3/uL (0.20-1.00); Monocytes % (A) 15.6 %; NRBC Per 100 WBC 0 X 10*3/uL (0.00-0.01); Neutrophils # (A) 2.11 X 10*3/uL (1.80-7.70); Neutrophils % (A) 50.8 %; Platelet Count 246 X 10*3/uL (140-440); RBC 4.37 X 10*6/uL (4.10-5.20); RDW 12.3 % (11.5-14.5); WBC 4.16 X 10*3/uL (4.50-10.00)
[2024-04-14 10:43] LABS: ALT 21 U/L (8-44); AST 26 U/L (13-35); Albumin 4.6 g/dL (3.8-4.9); Albumin/Globulin Ratio 1.53 Ratio (1.60-3.17); Alkaline Phosphatase 123 U/L (41-126); Calcium 9.8 mg/dL (8.7-10.3); Carbon Dioxide 25.2 mmol/L (21.6-31.8); Chloride 100 mmol/L (96-109); Chol/HDL Ratio 2.73 Ratio; Glucose 104 mg/dL (70-110); LDL Cholesterol,Calculated 104.1 mg/dL (0.0-131.0); Potassium 4.5 mmol/L (3.5-5.5); Sodium 136 mmol/L (135-145); T4, Free (Free Thyroxine) 1.13 ng/dL (0.80-1.80); Total Bilirubin 0.3 mg/dL (0.3-1.2); Total Protein 7.6 g/dL (6.2-8.2)
== END | disposition home or self-care (01) ==
LOC: LABWHC1 07:09
PROVIDERS: ATTEND Internal Medicine Critical Care Medicine
DX: Z01.812 Encounter for preprocedural laboratory examination (principal); I10 Essential (primary) hypertension; C85.80 Other specified types of non-Hodgkin lymphoma, unspecified site; J45.909 Unspecified asthma, uncomplicated; E78.5 Hyperlipidemia, unspecified; G51.0 Bell's palsy
CPT/HCPCS: 36415; 80053; 80061; 81001; 84439; 84443; 85025

== ENCOUNTER → 2024-05-08 | Outpatient (CLI) | payer MEDICARE, OTHER ==
--- NOTE | 2024-05-09 13:23 | PE ---
EXAMINATION TYPE: PET CT fusion skull to thigh DATE OF EXAM: 05/08/2024 CLINICAL INDICATION:Female, 73 years old with history of R91.8 Lung Nodule; non-Hodgkin's lymphoma TECHNIQUE: Following the intravenous administration of 12.87 mCi of F-18 FDG, whole body images are performed from the skull base to the midthigh. Images are reviewed on the computer in the coronal, axial, and sagittal planes. Reconstructed rotating images are created on independent workstation and reviewed on the computer. A non-contrast CT is performed in conjunction with the PET scan. Glucose level 99 mg/dL CT DLP: 466.48 mGycm, Automated exposure control for dose reduction was used. COMPARISON: CT chest 02/16/2023, 11/13/2022, PET/CT 11/25/2016, MRI: None FINDINGS: Mediastinal SUV mean is 2.76. Hepatic parenchyma SUV mean is 3.64. SKULL BASE AND NECK: Postsurgical changes from right parotidectomy. No suspicious radiotracer activit y. CHEST, MEDIASTINUM, AND HILAR REGION: Linear left apical 1.2 x 0.5 cm pulmonary lesion which is new f rom prior CT 02/16/2023. This demonstrates a maximum SUV 3.05. ABDOMEN AND PELVIS: No suspicious radiotracer activity. MUSCULOSKELETAL STRUCTURES: No suspicious radiotracer activity. Anterior cervical fusion. OTHER CT: No significant findings. IMPRESSION: Linear left apical 1.2 cm pulmonary lesion which is new from prior CT 02/16/2023. Demonstrates only mi ld FDG uptake just above background. Favored to represent an infectious/and inflammatory etiology melva darshan atelectasis. No other suspicious FDG uptake identified. Follow-up CT chest in 3 months is recomme nded.
== END | disposition home or self-care (01) ==
LOC: RADPETMAIN 06:56
PROVIDERS: ATTEND Internal Medicine Critical Care Medicine
DX: R91.8 Other nonspecific abnormal finding of lung field (principal)
CPT/HCPCS: 78815; A9552

== ENCOUNTER → 2024-05-27 | Outpatient (CLI) | payer MEDICARE, OTHER ==
--- NOTE | 2024-05-27 08:10 | CT ---
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 Bone and soft tissue settings are submitted. There is evidence of bilateral medial maxillary antrectomy and partial ethmoidectomy. There is persis tent mucosal thickening at the left maxillary sinus base. Remaining ethmoid air cells within demonstr ate the mucosal thickening. Frontal sinuses and sphenoid sinus are well aerated and free of air-fluid level or mucosal thickening. The nasal septum is midline. No bony destructive changes are seen within the field of view. Postoperative changes of partial masto idectomy on the left. IMPRESSION: Chronic left maxillary sinusitis as well as mucosal thickening of the remaining ethmoid air cells. Po stoperative changes as discussed.
== END | disposition home or self-care (01) ==
LOC: RADCTMAIN 06:27
PROVIDERS: ATTEND Otolaryngology
DX: J32.0 Chronic maxillary sinusitis (principal); J34.89 Other specified disorders of nose and nasal sinuses
CPT/HCPCS: 70486

== ENCOUNTER → 2024-12-19 | Outpatient (CLI) | payer MEDICARE, OTHER ==
[2024-12-19 10:52] LABS: African American GFR (CKD) 86 (>60 ml/min/1.73 sqM); Blood Urea Nitrogen 28 mg/dL (7-17); Non-African American GFR(CKD) 75 (>60 ml/min/1.73 sqM)
--- NOTE | 2024-12-19 12:26 | CT ---
EXAMINATION TYPE: CT chest w con CT DLP: 498 mGycm, Automated exposure control for dose reduction was used. DATE OF EXAM: 12/19/2024 12:15 PM COMPARISON: PET CT 05/08/2024, 11/25/2016, CT chest 02/16/2023, 11/13/2022 CLINICAL INDICATION:Female, 74 years old with history of R91.8 OTHER NONSPECIFIC ABNORMAL FINDING OF LUNG F; PHH, Non-specific abnormal finding of lung field. TECHNIQUE: Multiple axial images were obtained through the chest following the administration of 100 cc of Isovue 300. . Coronal and sagittal reformats reviewed. FINDINGS: LUNGS/ PLEURA: Elevation of the right hemidiaphragm. No pleural effusion or pneumothorax. Right lowe r lobe linear atelectasis. Stable left apical irregular pulmonary opacity measuring 1.6 x 0.9 cm. Add itional satellite micronodules. Demonstrated mild FDG activity on prior PET/CT. No definitive new pul monary nodularity. AIRWAY: Patent and unremarkable.. HEART: Size within normal limits.No pericardial effusion.. MEDIASTINUM: No gross evidence of adenopathy. VASCULATURE: No aortic aneurysm. MUSCULOSKELETAL: No acute osseous abnormalities. Partial visualization of anterior cervical fusion jimenez rdware. SOFT TISSUES/LYMPH NODES: Unremarkable. LOWER NECK: No significant findings. UPPER ABDOMEN: Small hiatal hernia. IMPRESSION: Stable left upper lobe irregular pulmonary opacity with some satellite micronodules. Demonstrated mil d FDG activity on prior PET/CT. No new or enlarging pulmonary nodules. May represent infectious/infla mmatory process versus etiologies. Follow-up CT chest in 6 months is recommended. [facility], , 12/19/2024 12:24 PM
== END | disposition home or self-care (01) ==
LOC: RADCTMAIN 10:17
PROVIDERS: ATTEND Internal Medicine Critical Care Medicine
DX: R91.8 Other nonspecific abnormal finding of lung field (principal)
CPT/HCPCS: 82565; 84520; 71260; 36415; Q9967

== ENCOUNTER → 2025-04-24 | Outpatient (CLI) | payer MEDICARE, OTHER ==
[2025-04-24 10:50] LABS: INR 0.9 (<1.2); Partial Thromboplastin Time 27.4 sec (22.0-30.0); Prothrombin Time 10.3 sec (10.0-12.5)
--- NOTE | 2025-04-24 12:07 | XR ---
EXAMINATION TYPE: XR chest 2V DATE OF EXAM: 04/24/2025 11:22 AM COMPARISON: 05/23/2024 CLINICAL INDICATION: Female, 74 years old with history of CERVICAL STENOSIS Z01.818 PRE SURGICAL for supine surgery, , TECHNIQUE: Frontal and lateral views FINDINGS: Heart normal size. Aorta and pulmonary vasculature within normal limits. No consolidation or pleural effusion. There is mild hyperinflation. ACDF hardware. IMPRESSION: Possible underlying COPD. No acute cardiopulmonary process. [facility], Workstation: [facility], 04/24/2025 12:05 PM
[2025-04-24 15:19] LABS: Basophils # (A) 0.04 X 10*3/uL (0.00-0.10); Basophils % (A) 0.5 %; Eosinophils # (A) 0.05 X 10*3/uL (0.04-0.35); Eosinophils % (A) 0.6 %; HCT 39.8 % (37.2-46.3); HGB 12.9 g/dL (12.0-15.0); Lymphocytes % (A) 7.7 %; MCH 30.1 pg (27.0-32.0); MCHC 32.4 g/dL (32.0-37.0); MCV 92.8 FL (80.0-97.0); Mean Platelet Volume 10.1 FL (9.5-12.2); Monocytes # (A) 0.82 X 10*3/uL (0.20-1.00); Monocytes % (A) 10.5 %; NRBC Per 100 WBC 0 X 10*3/uL (0.00-0.01); Neutrophils # (A) 6.21 X 10*3/uL (1.80-7.70); Neutrophils % (A) 79.9 %; Platelet Count 266 X 10*3/uL (140-440); RBC 4.29 X 10*6/uL (4.10-5.20); WBC 7.78 X 10*3/uL (4.50-10.00)
[2025-04-24 15:48] LABS: BUN/Creat Ratio 23.75 Ratio (12.00-20.00); Calcium 9.5 mg/dL (8.7-10.3); Chloride 100 mmol/L (96-109); Glucose 118 mg/dL (70-110); Potassium 4.4 mmol/L (3.5-5.5); Sodium 135 mmol/L (135-145)
[2025-04-24 15:51] LABS: Appearance,Urine Clear (Clear); Bilirubin,Urine Negative (Negative); Blood,Urine Negative (Negative); Color,Urine Yellow (Yellow); Ketones,Urine Negative (Negative); Nitrite,Urine Negative (Negative); Specific Gravity,Urine 1.015 (1.001-1.030); Urobilinogen,Urine 0.2 E.U./DL
[2025-04-24 15:57] LABS: Bacteria,Urine None Seen (None Seen)
== END | disposition home or self-care (01) ==
LOC: LABWHC1 09:57
PROVIDERS: ATTEND Orthopaedic Surgery Orthopaedic Surgery of the Spine
DX: Z01.818 Encounter for other preprocedural examination (principal); M48.02 Spinal stenosis, cervical region; Z22.322 Carrier or suspected carrier of Methicillin resistant Staphylococcus aureus
CPT/HCPCS: 36415; 71046; 80048; 81001; 85025; 85610; 85730; 87070; 93005

== ENCOUNTER → 2025-05-13 | Outpatient (CLI) | payer MEDICARE, OTHER | END | disposition home or self-care (01) | LOC: LABWHC1 08:35 | PROVIDERS: ATTEND Orthopaedic Surgery Orthopaedic Surgery of the Spine | DX: Z01.812 Encounter for preprocedural laboratory examination (principal) | CPT/HCPCS: 36415; 86850; 86900; 86901 ==

== ENCOUNTER 2025-05-20 07:57 | Day surgery (SDC) | payer MEDICARE, OTHER ==
[2025-05-14 12:16] VITALS: BMI 31.7
[2025-05-20] MEDS: IV FLUID CONTINUATION 1,000 ML IV ONE ×2 (08:27→09:19)
[2025-05-20] MEDS: ONDANSETRON 4 MG/2 ML VIAL IVP ONE (09:06)
[2025-05-20] MEDS: LACTATED RINGERS 1,000 ML IV SCH (09:06)
[2025-05-20] MEDS: DEXAMETHASONE SOD PHOSPHATE 4 MG/ML 1 ML VIAL IV ONE (09:07)
[2025-05-20] MEDS: VANCOMYCIN 1,000 MG in SODIUM CHLORIDE 0.9% 250 ML IVPB PRN (09:13)
[2025-05-20] MEDS: LACTATED RINGERS 1,000 ML IV ONE (09:19)
[2025-05-20] MEDS ORDERED: PHENYLEPHRINE-0.9% NACL SYG 1,000 MCG/10 ML SYRINGE ONE (10:10)
[2025-05-20] MEDS ORDERED: PROPOFOL 10 MG/ML 20 ML VIAL IV ONE (10:10)
[2025-05-20] MEDS ORDERED: LIDOCAINE 1% INJ 10MG/ML (20 ML MDV) ONE (10:10)
[2025-05-20] MEDS ORDERED: KETAMINE HCL IN 0.9 % NACL 50 MG/5 ML SYRINGE ONE (10:10)
[2025-05-20] MEDS ORDERED: SUCCINYLCHOLINE CHLORIDE 200 MG/10 ML VIAL IV ONE (10:10)
[2025-05-20] MEDS ORDERED: DEXAMETHASONE SOD PHOSPHATE 10 MG/ML 1 ML VIAL ONE (10:10)
[2025-05-20] MEDS ORDERED: MIDAZOLAM 2 MG/2 ML VIAL ONE (10:10)
[2025-05-20] MEDS ORDERED: fentaNYL (PF) 50 MCG/ML 2 ML AMP ONE (10:10)
[2025-05-20] MEDS ORDERED: ROCURONIUM 10 MG/ML (5 ML VIAL) IV ONE (10:10)
[2025-05-20] MEDS ORDERED: GLYCOPYRROLATE 0.2 MG/ML 2 ML VIAL ONE (10:10)
[2025-05-20] MEDS ORDERED: NEOSTIGMINE 1 MG/ML 10 ML VIAL ONE (10:10)
[2025-05-20] MEDS: ceFAZolin 1,000 MG in SODIUM CHLORIDE 0.9% IRRIGATIO 1,000 ML IRRIGATION PRN (10:24)
[2025-05-20] MEDS: LIDOCAINE 1%-EPI 1:100,000 20 ML VIAL SQ ONE (10:47)
[2025-05-20] MEDS: THROMBIN (BOVINE) 5,000 UNIT VIAL TOPICAL ONE (10:47)
[2025-05-20] MEDS ORDERED: ONDANSETRON 4 MG/2 ML VIAL IVP PRN (12:07)
[2025-05-20] MEDS ORDERED: HYDROmorphone 1 MG/ML 1 ML SYRINGE IVP PRN (12:07)
[2025-05-20] MEDS ORDERED: BENZOCAINE/MENTHOL LOZENG 1 EACH LOZENGE MUCOUS MEM PRN (12:07)
[2025-05-20] MEDS ORDERED: ALBUTEROL NEBULIZED 2.5 MG/3 ML INHALATION PRN ×2 (12:09)
--- NOTE | 2025-05-20 12:20 | P.OP ---
Date of Procedure: 05/20/25 Preoperative Diagnosis: Spinal stenosis C3-4, herniated nucleus pulposus at C3-4, anterior listhesis C3- 4, history of prior anterior cervical fusion C4-5 C5-6 C6-7 with retained hardware, upper extremity radiculopathy, Postoperative Diagnosis: Same, with findings of solid fusion see 4 5 C5-6 C6-7 Anesthesia: GETA Pathology: none sent Condition: stable Disposition: PACU Description of Procedure: BRIEF OPERATIVE NOTE Preoperative Diagnosis:Spinal stenosis C3-4, herniated nucleus pulposus at C3-4, anterior listhesis C3-4, history of prior anterior cervical fusion C4-5 C5-6 C6- 7 with retained hardware, upper extremity radiculopathy, Postoperative Diagnosis:Spinal stenosis C3-4, herniated nucleus pulposus at C3- 4, anterior listhesis C3-4, history of prior anterior cervical fusion C4-5 C5-6 C6-7 with retained hardware, upper extremity radiculopathy, with findings of solid fusion C4-5 C5-6 C6-7 Procedure: Anterior cervical decompression with discectomy and fusion C3-4 Placement of interbody graft C3-4 Application of anterior cervical plate C3-4-5 Removal of deep hardware [id number] Exploration of fusion C4-5 C5-6 C6-7 Surgeon: Dr. Camp General Hardware Salesperson: Antoni AMARO who is present throughout the entire the case persistence during positioning, dissection, exposure, visualization, and all crucial elements of the case as well as closure. Anesthesia: General anesthesia per Dr. Leon Estimated blood loss: Approximately 50 cc Complications: None apparent Components implanted: K2M [place] [employer] anterior cervical plate measuring 36 mm with 6 screws and 1 of Vikos interbody allograft bone graft Disposition: To recovery room in good stable condition. OPERATIVE INDICATIONS The patient has had long-standing issues in their neck and upper extremities. Years ago she underwent anterior cervical decompression with discectomy and fusion at her cervical spine and had good results from that. She did well for a number of years but has been having worsening symptoms over the past year and particularly in the past several months. She has been having adjacent level degeneration at C3-4 with herniation and progressive stenosis at that level. This correlated well with her neck and upper extremity symptoms. Her hardware remained intact at C4-5 C5-6 C6-7. She was not having any benefit despite aggressive conservative care. The patient has been through conservative treatment. We discussed various treatment options including surgery, and the patient wishes to proceed with surgery We discussed the risk, patient's alternatives and benefits of surgery including but not limited to, risk of bleeding risk of infection, risk of need for further surgery, risk of decreased, loss of motion, muscle function, malunion nonunion, hardware failure, nerve damage, paralysis, heart attack, and . OPERATIVE SUMMARY After discussing all the risks, patient alternatives and benefits at length, the patient elected to proceed with surgical intervention, signed informed consent, and presented for their procedure. The patient was seen and examined in the preoperative holding area and the surgical site was marked. The patient was given antibiotics and brought to the operating room. The patient was positioned on the operating room table in a supine position being careful to pad any bony prominences and pressure points. The patient was sedated and intubated by anesthesia in standard fashion. Once the airway and C- spine were stabilized the patient's arms were padded and tucked at her side, with her shoulders gently taped. The head was placed in a donut pad with the neck in good neutral alignment and position. We were careful to maintain the patient's cervical spine and good neutral alignment and position throughout. The patient was prepped and draped in a normal standard fashion. An appropriate timeout and keystone protocol performed. We were able to proceed with the surgery. The local wound area was infiltrated with local anesthetic. An incision was made transversely approximately 2-1/2 cm over the appropriate levels at approximately C4. Dissection was taken down subcutaneously to the level of the platysma which was split in line with its fibers. Dissection was taken with a carotid approach, with the trachea and esophagus medial and the carotid sheath laterally. We dissected down to the anterior surface of the vertebral bodies. It was very obvious that the plate was impinging significantly to the inferior aspect of C3. There is a listhesis and the plate was blocking access to the C3-4 disc space. I was able to easily identify the space at C3-4 with the plate intact. I felt I had removed the plate in order to gain appropriate access to the level and achieve good stability for fusion. . With the appropriate level positively confirmed at C3-4, I further expose the plate at C4-5 C5-6 and C6-7. I was able to then go ahead and remove the plate and screws at C4-5-6 and 7. I remove the screws after unlocking devices and each screw was found to be in total. I would remove the plate in its entirety. I was able to explore the area and the plate had had good stability without any evidence of loosening. I was able to explore the interbody spaces which showed good bone formation at each level at C4-5 C5-6 and C6-7. I thought that we had excellent stability from C4-C7 with solid fusion. I then turned my attention back to the C3-4 level. We were able to proceed with discectomy at the appropriate levels at C3-4. the operative levels were exposed appropriately. The patient had all their twitches back, and there was no evidence of recurrent laryngeal issue. The wound was copiously irrigated and suctioned dry as had been done periodically throughout the case. At the appropriate level of C3-4, I established an annulotomy with an 11 blade scalpel. A discectomy was performed with a combination of pituitary rongeurs, curettes, a high-speed bur, and Ker rison rongeurs. The posterior longitudinal ligament was taken down as were any posterior osteophytes. This gave good central and bilateral foraminal decompression. There is no evidence of any dural tear or leak. The endplates were prepared with a high-speed bur. With the endplates in good parallel position, I was able to size for the appropriate size interbody graft. The wound was irrigated and suctioned dry the graft was prepared and malleted into position. It had good alignment and position with the anterior surface flush with the anterior surface of the vertebral bodies. With the grafts intact, I was able to measure and contour and appropriate sized plate. I felt he needed good stability in order to get some reduction of the listhesis at C3-4. I decided to extend the plate from C3-C4 and also to C5 to get more fixation points below the C3-4 disc. The plate was positioned at the midline over the appropriate levels. Screw holes were established with a hand drill and drill guide. Screws were placed in good alignment and position with excellent bony purchase at C3-4 and 5. They were seated under the locking device. The construct was checked and found to be stable. Good reduction of the listhesis as well intraoperative x-ray was taken which showed good alignment and position of the implants at the appropriate levels. There was no evidence of any dural tear or leak. Good hemostasis was maintained. The wound was copiously irrigated and suctioned dry as had been done periodically throughout the case. The platysma was closed with absorbable suture. The subcutaneous tissue was closed. The subcuticular tissue was closed with absorbable suture. The wound was cleaned and dried and dressed appropriately. A soft cervical collar was placed appropriately. The patient was woken up by anesthesia, extubated, transferred back gently to their hospital bed and brought to the recovery room in good stable condition. The patient will be admitted to the hospital for appropriate postoperative care, medical management and monitoring. We will continue to follow them closely about the postoperative course.
[2025-05-20] MEDS: HYDROmorphone 0.5 MG/0.5 ML SYRINGE IVP PRN ×2 (12:40→14:04)
--- NOTE | 2025-05-20 15:12 | XR ---
EXAMINATION TYPE: XR cervical spine limited, FL guidance operating room DATE OF EXAM: 05/20/2025 FLUOROSCOPY ANTERIOR CERVICAL DECOMPRESSION FL TIME- 1.02 SEC DAP- 0.0417 2 images are submitted. [facility], , 05/20/2025 3:09 PM
[2025-05-20] MEDS: SODIUM CHLORIDE 0.9% 1,000 ML IV SCH (16:09)
[2025-05-20] MEDS: traMADol 50 MG TAB PO PRN (17:49)
[2025-05-20] MEDS: PILOCARPINE 5 MG TAB PO SCH (20:54)
[2025-05-20] MEDS: PANTOPRAZOLE 40 MG TABLET PO SCH (20:54)
[2025-05-20] MEDS: VIT A,C & E-LUTEIN-MINERALS 1 EACH TAB PO SCH (20:54)
[2025-05-20] MEDS: CHOLECALCIFEROL 125 MCG (5000 IU) TABLET PO SCH (20:55)
[2025-05-20] MEDS: amLODIPine 10 MG TAB PO SCH (20:55)
[2025-05-20] MEDS ORDERED: NON FORMULARY DRUG (Vitamin C/Biotin [Hair, Skin And Nails Chew] 1 EACH Tab.Chew) PO SCH (21:00)
[2025-05-20] MEDS: LUBIPROSTONE 24 MCG PO SCH (22:29)
[2025-05-21 03:35] VITALS: PULSE 79
[2025-05-21 07:28] VITALS: BP 149/82; RESP 16; TEMP 98
[2025-05-21] MEDS: SENNOSIDES-DOCUSATE SODIUM 1 EACH TAB PO SCH (07:47)
[2025-05-21] MEDS: LOSARTAN 50 MG TAB PO SCH (07:47)
[2025-05-21] MEDS: ATORVASTATIN 10 MG TAB PO SCH (07:47)
[2025-05-21] MEDS: GABAPENTIN 300 MG CAP PO SCH (07:47)
--- NOTE | 2025-05-21 09:04 | P.DS ---
Providers Date of admission: 05/20/2025 Expected date of discharge: 05/21/25 Attending physician: Jarett Camp Primary care physician: Ayana Guzmán - Discharge Diagnosis(es) (1) Cervical herniated disc Current Visit: Yes Status: Acute (2) Cervical stenosis of spinal canal Current Visit: Yes Status: Acute (3) Status post cervical spinal fusion Current Visit: Yes Status: Acute (4) History of cervical spinal arthrodesis Current Visit: Yes Status: Acute (5) Radiculopathy affecting upper extremity Current Visit: Yes Status: Acute Hospital Course: This is a pleasant 74-year-old female who presented with C3-4 herniated nucleus pulposus, spondylolisthesis and spinal stenosis with upper extremity radiculopathy with history of previous cervical fusion C4-7 who failed outpatient conservative therapy. She was admitted for a C3-4 anterior cervical decompression and fusion with removal of hardware at C4-5, C5-6, and C6-7. The patient tolerated the procedure well and did well postoperatively. Her throat is a little sore and hoarse postoperatively. She was able o eat soft foods yesterday. She was able to tolerate sausage this morning. She feels her pain is well-controlled and she is ready for discharge today. Condition on day of discharge stable. Patient will be discharged home. Patient was cleared preoperatively for surgery by Dr. Guzmán. Patient currently denies any nausea, vomiting, fever, or chills. Patient is eating and voiding freely without difficulty. Patient may shower Optifoam dressing intact. Patient may remove Optifoam dressing in 3 days and shower without a dressing at that time. Patient should refrain from driving until at least after their first follow-up appointment in the office. Patient should avoid excessive neck flexion, extension, rotation, and lateral sidebending; no overhead lifting; no lifting greater than 10 pounds. MAPS has been reviewed today, 05/21/2025. An "Opiod Start Talking" Form has been signed and placed in the patient's chart. A prescription has been written for tramadol 50 mg, 1-2 tabs, every 6 hours, as needed for acute pain, dispense #56. Prescription is sent to the [facility] pharmacy located within [facility] per request of the patient. Physical Exam on day of discharge: Patient is awake, alert, and oriented 3 Vital signs stable Good chest excursion with deep inspiration and expiration Abdomen soft nontender Full range of motion of the cervical spine with adequate flexion, extension, and bilateral rotation Lamp Decorator strength, thumb strength, interosseous strength, biceps strength, triceps strength, and shoulder strength positive sustained bilaterally Soft cervical collar intact Some mild swelling around the surgical site Incision is clean, dry, and intact; no erythema, purulence, or signs of infection Optifoam dressing intact Seen and examined at bedside. I agree with the above. She seems to be doing well and is okay for discharge home today Procedures: C3-4 anterior cervical decompression and fusion with removal of hardware at C4- 5, C5-6, and C6-7. Patient Condition at Discharge: Stable Plan - Discharge Summary Discharge Rx Participant: Yes New Discharge Prescriptions: New traMADol HCl [Ultram] 50 mg PO Q6H PRN #56 tab PRN Reason: Pain No Action Losartan Potassium [Cozaar] 100 mg PO QAM Atorvastatin [Lipitor] 10 mg PO DAILY Pilocarpine HCl [Salagen] 5 mg PO BID amLODIPine BESYLATE 10 mg PO HS Lubiprostone 24 mcg PO BID Gabapentin 300 mg PO QAM Cholecalciferol (Vitamin D3) [Vitamin D3 (125 MCG = 5,000 IU)] 125 mcg PO HS Albuterol Nebulized [Ventolin Nebulized] 2.5 mg INHALATION TID PRN PRN Reason: Astma Flare Up Esomeprazole Magnesium 40 mg PO BID Albuterol Inhaler (? Dose) 1 - 2 puff INHALATION DIRECTED PRN PRN Reason: Shortness Of Breath Vitamin C/Biotin [Hair, Skin and Nails Chew] 1 tab PO BID Vit C/E/Zn/Coppr/Lutein/Zeaxan [Preservision Areds 2 Softgel] 1 each PO BID Discharge Medication List Atorvastatin [Lipitor] 10 mg PO DAILY 05/14/17 [History] Losartan Potassium [Cozaar] 100 mg PO QAM 05/14/17 [History] Pilocarpine HCl [Salagen] 5 mg PO BID 05/14/17 [History] Albuterol Nebulized [Ventolin Nebulized] 2.5 mg INHALATION TID PRN 01/27/22 [History] Albuterol Inhaler (? Dose) 1 - 2 puff INHALATION DIRECTED PRN 05/14/25 [History] Cholecalciferol (Vitamin D3) [Vitamin D3 (125 MCG = 5,000 IU)] 125 mcg PO HS 05/14/25 [History] Esomeprazole Magnesium 40 mg PO BID 05/14/25 [History] Gabapentin 300 mg PO QAM 05/14/25 [History] Lubiprostone 24 mcg PO BID 05/14/25 [History] Vit C/E/Zn/Coppr/Lutein/Zeaxan [Preservision Areds 2 Softgel] 1 each PO BID 05/14/25 [History] Vitamin C/Biotin [Hair, Skin and Nails Chew] 1 tab PO BID 05/14/25 [History] amLODIPine BESYLATE 10 mg PO HS 05/14/25 [History] traMADol HCl [Ultram] 50 mg PO Q6H PRN #56 tab 05/21/25 [Rx] Follow up Appointment(s)/Referral(s): Antoni Caballero PAC [PHYSICIAN PUPPET MASTER] - 06/02/25 8:00 am (Patient may follow-up with Antoni Caballero PA-C or Dr. Trevor Camp at [facility] in 2-3 weeks following discharge. ) Ayana Guzmán MD [Primary Care Provider] - 07/02/25 8:30 am Patient Instructions/Handouts: *Surgery [facility] - ([place]) Cervical Surgery Discharge Instructions Activity/Diet/Wound Care/Special Instructions: 1. Patient may shower with Optifoam dressing intact. 2. Patient may remove Optifoam dressing in 3 days and shower without a dressing at that time. 3. Patient may wear soft cervical collar for comfort support as needed. 4. Patient should refrain from driving until at least after their first follow- up appointment in the office. 5. Patient should avoid excessive cervical flexion, extension, and side bending; avoid overhead lifting; no lifting greater than 10 pounds 6. Take medications as prescribed 7. Patient should avoid anti-inflammatory medications over the next 6 weeks postoperatively 8. Do not soak in tub Discharge Disposition: HOME SELF-CARE
== END 2025-05-21 11:06 | disposition home or self-care (01) ==
LOC: OR 07:57 → 4SSUR 13:11 → OR 05-21 11:06
PROVIDERS: ATTEND Orthopaedic Surgery Orthopaedic Surgery of the Spine
DX: M48.02 Spinal stenosis, cervical region (principal); M43.12 Spondylolisthesis, cervical region; M50.11 Cervical disc disorder with radiculopathy, high cervical region; Z98.1 Arthrodesis status; Z79.899 Other long term (current) drug therapy
CPT/HCPCS: 72040; 22551; 22552; 22846; 22853; 20930; 20931; C1713; C1762; J1100; J0690 ×3; J2405; J1171; J3373

== ENCOUNTER 2025-05-25 12:00 | Observation (INO) | payer MEDICARE, OTHER ==
[2025-05-25 12:31] LABS: Glucose,Whole Blood 113 mg/dL (70-110)
--- NOTE | 2025-05-25 12:39 | ED ---
General Adult HPI - General Chief complaint: Neuro Symptoms/Deficit Stated complaint: Stroke symptoms Time Seen by Provider: 05/25/25 12:15 Source: patient, RN notes reviewed, old records reviewed Mode of arrival: ambulatory Limitations: no limitations - History of Present Illness Initial comments: 74-year-old female with past medical history remarkable for Sjogren syndrome, lupus, hypertension, hyperlipidemia, rheumatoid arthritis, as well as recent cervical fusion [address] Camp presents to the emergency department for possible strokelike symptoms. After her surgery last week, patient awoke and had some left-sided lower facial droop. This is not uncommon necessarily for the patient as she states that when she gets very tired she has it as she does have a remote history of Mcgrath's palsy with some residual weakness in the facial muscles on the left side. However she states that the facial droop did improve over the last few days however she awoke this morning and looked in the mirror and noticed that the facial droop was worse again with some paresthesias on her lips and presents today for further evaluation after contacting Dr. Engel. Last known well was last night at 7 PM when she went to sleep. Awoke this morning with symptoms. Is not on blood thinners. Denies head trauma. Does have a recent cervical spine fusion. Has no other acute complaints. Presents for further evaluation. - Related Data Home Medications Medication Instructions Recorded Confirmed Atorvastatin [Lipitor] 10 mg PO DAILY 05/14/17 05/25/25 Losartan Potassium [Cozaar] 100 mg PO DAILY 05/14/17 05/25/25 Pilocarpine HCl [Salagen] 5 mg PO BID 05/14/17 05/25/25 Cholecalciferol (Vitamin D3) 125 mcg PO HS 05/14/25 05/25/25 [Vitamin D3 (125 MCG = 5,000 IU)] Esomeprazole Magnesium 40 mg PO BID 05/14/25 05/25/25 Gabapentin 300 mg PO DAILY 05/14/25 05/25/25 Lubiprostone 24 mcg PO BID 05/14/25 05/25/25 Vit C/E/Zn/Coppr/Lutein/Zeaxan 1 cap PO BID 05/14/25 05/25/25 [Preservision Areds 2 Softgel] Vitamin C/Biotin [Hair, Skin and 1 tab PO BID 05/14/25 05/25/25 Nails Chew] amLODIPine [Norvasc] 10 mg PO HS 05/25/25 05/25/25 metHOTREXate sodium 10 mg PO TH 05/25/25 05/25/25 prednisoLONE ACETATE 1% OPHTH 1 drops BOTH EYES BID PRN 05/25/25 05/25/25 [Pred Forte 1%] Allergies Allergy/AdvReac Type Severity Reaction Status Date / Time codeine Allergy Hallucinati Verified 05/25/25 14:36 ons erythromycin base Allergy Vomiting Verified 05/25/25 14:36 nystatin Allergy Rash/Hives Verified 05/25/25 14:36 NSAIDS (Non-Steroidal AdvReac Hx GI Bleed Verified 05/25/25 14:36 Anti-Inflamma Review of Systems ROS Statement: Those systems with pertinent positive or pertinent negative responses have been documented in the HPI. Review of Systems: CONST: Denies fever EYES: Denies blurry vision ENT: Denies nasal congestion C/V: Denies Chest pain RESP: Denies shortness of breath GI: Denies abdominal pain : Denies dysuria SKIN: Denies rash. MSK: Denies joint pain. NEURO: Denies headache ROS Other: All systems not noted in ROS Statement are negative. Past Medical History Past Medical History: Asthma, Cancer, Eye Disorder, GERD/Reflux, GI Bleed, Hearing Disorder / Deafness, Hyperlipidemia, Hypertension, Musculoskeletal Disorder, Osteoarthritis (OA), Rheumatoid Arthritis (RA), Vascular Disorder Additional Past Medical History / Comment(s): Chronic neck pain cervical DDD, occasional numbness and tingling in left hand, right upper arm pain - having MRI in May 2025. 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 Deaf in left ear. Bilateral Wet Macular Degeneration. Lupus, Sjogren's disease, occasional "brain fog." Varicose veins, hx vasculitis. Hx MRSA X3. History of Any Multi-Drug Resistant Organisms: MRSA Date of last positivie culture/infection: 08/10/22 MDRO Source:: Bronch Wash Past Surgical History: Ear Surgery, Hysterectomy, Joint Replacement, Tonsillectomy Additional Past Surgical History / Comment(s): Right total knee replacement, left parotid gland removed, left mastoid removed. Past Anesthesia/Blood Transfusion Reactions: Postoperative Nausea & Vomiting (PONV) Past Psychological History: No Psychological Hx Reported Smoking Status: Never smoker Past Alcohol Use History: None Reported Past Drug Use History: None Reported - Past Family History Father Family Medical History: Cancer Additional Family Medical History / Comment(s): Kidney cancer. Sister(s) Family Medical History: Cancer Additional Family Medical History / Comment(s): Pancreatic cancer. General Exam - General Exam Comments Initial Comments: General: Appears in no acute distress. HEAD: Normal with no signs of head trauma. EYES: PERRLA, EOMI, conjunctiva normal, no discharge. Pupils are 3 mm and equal bilaterally. ENT: Hearing grossly intact, normal oropharynx. Neck brace is in place. RESPIRATORY: Clear breath sounds bilaterally. No wheezes, rales, or rhonchi. C/V: Regular rate and rhythm. S1 and S2 auscultated, no edema, peripheral pulses 2+ and intact throughout ABD: Abd is soft, nontender, nondistended EXT: Normal range of motion, no obvious deformity SKIN: No rashes or lesions observed on exposed skin. NEURO: Alert and oriented x 4. NIH is 1-2 for left-sided facial droop of the lower face. Last known well was 7 PM on 05/24/2025 Limitations: no limitations Course Vital Signs 05/25/25 05/25/25 05/25/25 12:06 12:12 12:27 Temperature 97.9 F Pulse Rate 83 68 75 Respiratory 16 16 20 Rate Blood Pressure 138/84 159/98 159/90 O2 Sat by Pulse 98 98 98 Oximetry 05/25/25 05/25/25 05/25/25 12:58 13:36 14:00 Temperature Pulse Rate 73 85 75 Respiratory 20 16 16 Rate Blood Pressure 165/87 165/97 130/88 O2 Sat by Pulse 98 98 98 Oximetry Medical Decision Making - Medical Decision Making Was pt. sent in by a medical professional or institution (, PA, ELECTRONICS PRODUCTION SUPERVISOR, urgent care, hospital, or fdc...) When possible be specific @ -No Did you speak to anyone other than the patient for history (EMS, parent, family, police, friend...)? What history was obtained from this source @ -No Did you review nursing and triage notes (agree or disagree)? Why? @ -I reviewed and agree with nursing and triage notes Were old charts reviewed (outside hosp., previous admission, EMS record, old EKG, old radiological studies, urgent care reports/EKG's, fdc records)? Report findings @ -Old charts reviewed confirming patient had cervical spinal fusion on Sunday, May 20, 2025. Surgeon was Dr. Camp. Differential Diagnosis (chest pain, altered mental status, abdominal pain women, abdominal pain men, vaginal bleeding, weakness, fever, dyspnea, syncope, headache, dizziness, GI bleed, back pain, seizure, CVA, palpatations, mental health, musculoskeletal)? @ -Differential CVA Ischemic stroke, hemorrhagic stroke, brain tumor, atypical migraine, Wernicke's encephalopathy, seizure, multiple sclerosis, meningitis, encephalitis, hypoglycemia, Guillain-Crespo, electrolytes disturbance, myasthenia gravis.... This is not meant to be an all-inclusive list EKG interpreted by me (3pts min.). @ -As above X-rays interpreted by me (1pt min.). @ -Chest x-ray shows no obvious acute cardiopulmonary process. CT interpreted by me (1pt min.). @ -CT brain shows no obvious acute intracranial process. Chronic degenerative changes and age-related changes present. CT angiogram head and neck negative for any obvious acute process. U/S interpreted by me (1pt. min.). @ -None done What testing was considered but not performed or refused? (CT, X-rays, U/S, labs)? Why? @ -None What meds were considered but not given or refused? Why? @ -None Did you discuss the management of the patient with other professionals (professionals i.e. , PREM, ELECTRONICS PRODUCTION SUPERVISOR, lab, RT, psych nurse, social science research assistant, vessel scrapper, teacher, security vehicle patrol officer, telephonic nurse case manager)? Give summary @ -Discussed with neurocritical care, Ellie REICH, who works for Dr. Dahl who was in agreement plan for imaging as well as with plan for medical management. He will be contacted with any pertinent findings. I contacted patient's surgeon, Dr. Camp who states that patient is okay to receive blood thinners. States patient is not yet cleared for MRI, as well the hardware that he used is safe for MRI however recommendation is waiting at least 6 weeks postop. I spoke with Dr. Winters of neurology to update him on the patient as well as the stipulations not to obtain an MRI due to the recent cervical spine surgery and new hardware. He expressed understanding was in agreement the plan. Patient admitted to Dr. Wilkerson. Patient has not yet followed up with him but plans on transitioning her care outpatient to him his PCP. He accepted the admission. Was smoking cessation discussed for >3mins.? @ -No Was critical care preformed (if so, how long)? @ -Yes, 34 minutes Were there social determinants of health that impacted care today? How? (Homelessness, low income, unemployed, alcoholism, drug addiction, transportation, low edu. Level, literacy, decrease access to med. care, skilled nursing, rehab)? @ -No Was there de-escalation of care discussed even if they declined (Discuss DNR or withdrawal of care, Hospice)? DNR status @ -No What co-morbidities impacted this encounter? (DM, HTN, Smoking, COPD, CAD, Cancer, CVA, ARF, Chemo, Hep., AIDS, mental health diagnosis, sleep apnea, morbid obesity)? @ -Cervical spinal fusion recently, hypertension, hyperlipidemia, lupus, Sjogr en syndrome Was patient admitted / discharged? Hospital course, mention meds given and route, prescriptions, significant lab abnormalities, going to OR and other pertinent info. @ -Based on patient's presentation and physical exam, presents emergency department as a code stroke. Patient has somewhat had symptoms since last Sunday however acutely worsened this morning which is why code stroke was activated. NIH is 1-2 for left lower facial droop. Last known well is 2100 on 05/24/2025. Patient is not a thrombolytic candidate is she is outside of the treatment window and has a low NIH and therefore risks far outweigh the benefits. Patient was in agreement with the plan for code stroke. We will obtain CT imaging. I spoke with neuro interventionalists on-call, Ellie REICH, who works for Dr. Dahl who was in agreement with the plan. I contacted patient's surgeon, Dr. Camp who states that patient is okay to receive blood thinners. States patient is not yet cleared for MRI, as well the hardware that he used is safe for MRI however recommendation is waiting at least 6 weeks postop. Patient's imaging returned unremarkable. Laboratory studies returned all within acceptable limits. EKG shows no signs of acute ischemia. I updated the patient. Exam is unchanged. NIH remains 1-2. Patient will given 325 mg of aspirin. Patient will be admitted to observation as we cannot obtain MRI on this admission due to the recent cervical spine fusion and being too soon postop to complete MRI with the new hardware. Patient was in agreement this plan. I spoke with Dr. Winters of neurology to update him on the patient as well as the stipulations not to obtain an MRI due to the recent cervical spine surgery and new hardware. He expressed understanding was in agreement the plan. Patient admitted to Dr. Wilkerson. Patient has not yet followed up with him but plans on transitioning her care outpatient to him his PCP. He accepted the admission. Undiagnosed new problem with uncertain prognosis? @ -No Drug Therapy requiring intensive monitoring for toxicity (Heparin, Nitro, Insu marybeth, Cardizem)? @ -No Were any procedures done? @ -No Diagnosis/symptom? @ -Left-sided facial droop, possible CVA Acute, or Chronic, or Acute on Chronic? @ -Acute on chronic Uncomplicated (without systemic symptoms) or Complicated (systemic symptoms)? @ -Complicated Side effects of treatment? @ -None Exacerbation, Progression, or Severe Exacerbation] @ -No Poses a threat to life or bodily function? @ -Potentially, yes - Lab Data Result diagrams: 05/25/25 12:27 05/25/25 12:27 Lab Results 05/25/25 05/25/25 05/25/25 Range/Units 12:27 12:27 12:27 WBC 5.71 (4.50-10.00) 10*3/uL RBC 4.12 (4.10-5.20) 10*6/uL Hgb 12.8 (12.0-15.0) g/dL Hct 37.0 L (37.2-46.3) % MCV 89.8 (80.0-97.0) fL MCH 31.1 (27.0-32.0) pg MCHC 34.6 (32.0-37.0) g/dL Plt Count 242 (140-440) 10*3/uL MPV 9.5 (9.5-12.2) fL Immature Gran % (Auto) 0.5 % Neutrophils % 66.0 % Lymphocytes % 16.6 % Monocytes % 15.4 % Eosinophils % 1.1 % Basophils % 0.4 % Immature Gran # 0.03 (0.00-0.04) 10*3/uL Neutrophils # 3.77 (1.80-7.70) 10*3/uL Lymphocytes # 0.95 (0.90-5.00) 10*3/uL Monocytes # 0.88 (0.20-1.00) 10*3/uL Eosinophils # 0.06 (0.04-0.35) 10*3/uL Basophils # 0.02 (0.00-0.10) 10*3/uL PT 11.2 (10.0-12.5) sec INR 1.0 (<1.2) APTT 26.3 (22.0-30.0) sec Sodium 130 L (137-145) mmol/L Potassium 4.6 (3.5-5.1) mmol/L Chloride 98 (98-107) mmol/L Carbon Dioxide 23 (22-30) mmol/L Anion Gap 9 mmol/L BUN 17 (7-17) mg/dL Creatinine 0.67 (0.52-1.04) mg/dL Est GFR (CKD-EPI)AfAm >90 (>60 ml/min/1.73 sqM) Est GFR (CKD-EPI)NonAf 87 (>60 ml/min/1.73 sqM) Glucose 100 H (74-99) mg/dL POC Glucose (mg/dL) (70-110) mg/dL POC Glu Occupational Health And Safety Manager ID Calcium 9.5 (8.4-10.2) mg/dL Total Bilirubin 0.4 (0.2-1.3) mg/dL AST 28 (14-36) U/L ALT 26 (4-34) U/L Alkaline Phosphatase 115 (38-126) U/L Creatine Kinase 25 L (30-135) U/L Total Protein 6.8 (6.3-8.2) g/dL Albumin 4.0 (3.5-5.0) g/dL 05/25/25 Range/Units 12:30 WBC (4.50-10.00) 10*3/uL RBC (4.10-5.20) 10*6/uL Hgb (12.0-15.0) g/dL Hct (37.2-46.3) % MCV (80.0-97.0) fL MCH (27.0-32.0) pg MCHC (32.0-37.0) g/dL Plt Count (140-440) 10*3/uL MPV (9.5-12.2) fL Immature Gran % (Auto) % Neutrophils % % Lymphocytes % % Monocytes % % Eosinophils % % Basophils % % Immature Gran # (0.00-0.04) 10*3/uL Neutrophils # (1.80-7.70) 10*3/uL Lymphocytes # (0.90-5.00) 10*3/uL Monocytes # (0.20-1.00) 10*3/uL Eosinophils # (0.04-0.35) 10*3/uL Basophils # (0.00-0.10) 10*3/uL PT (10.0-12.5) sec INR (<1.2) APTT (22.0-30.0) sec Sodium (137-145) mmol/L Potassium (3.5-5.1) mmol/L Chloride (98-107) mmol/L Carbon Dioxide (22-30) mmol/L Anion Gap mmol/L BUN (7-17) mg/dL Creatinine (0.52-1.04) mg/dL Est GFR (CKD-EPI)AfAm (>60 ml/min/1.73 sqM) Est GFR (CKD-EPI)NonAf (>60 ml/min/1.73 sqM) Glucose (74-99) mg/dL POC Glucose (mg/dL) 113 H (70-110) mg/dL POC Glu Occupational Health And Safety Manager ID [place] Calcium (8.4-10.2) mg/dL Total Bilirubin (0.2-1.3) mg/dL AST (14-36) U/L ALT (4-34) U/L Alkaline Phosphatase (38-126) U/L Creatine Kinase (30-135) U/L Total Protein (6.3-8.2) g/dL Albumin (3.5-5.0) g/dL - EKG Data -: EKG Interpreted by Me EKG Comments: 12-lead Electrocardiogram Interpretation Note EKG was reviewed and interpreted by myself. 12-lead ECG performed at 1249 is interpreted by me as revealing normal sinus rhythm at a rate of 69 beats per minute. Schuyler is normal. OR interval is 172 ms, QRS durations 82 ms, QTc is 395 ms.. There were no ST or T wave abnormalities to suggest myocardial ischemia or injury. R wave progression across the precordium was satisfactory. By my interpretation this EKG is non-diagnostic for acute ischemia. Critical Care Time Critical Care Time: Yes Total Critical Care Time: 34 Disposition Clinical Impression: Cerebrovascular accident (CVA), Facial droop Disposition: ADMITTED IP TO THIS [facility] Condition: Stable Referrals: None,Stated [REFERRING] - 1-2 days Time of Disposition: 13:50
[2025-05-25 12:44] LABS: Basophils # (A) 0.02 10*3/uL (0.00-0.10); Basophils % (A) 0.4 %; Eosinophils # (A) 0.06 10*3/uL (0.04-0.35); Eosinophils % (A) 1.1 %; HCT 37.0 % (37.2-46.3); HGB 12.8 g/dL (12.0-15.0); Lymphocytes # (A) 0.95 10*3/uL (0.90-5.00); Lymphocytes % (A) 16.6 %; MCH 31.1 pg (27.0-32.0); MCHC 34.6 g/dL (32.0-37.0); MCV 89.8 fL (80.0-97.0); Monocytes # (A) 0.88 10*3/uL (0.20-1.00); Monocytes % (A) 15.4 %; Neutrophils # (A) 3.77 10*3/uL (1.80-7.70); Neutrophils % (A) 66.0 %; Platelet Count 242 10*3/uL (140-440); RBC 4.12 10*6/uL (4.10-5.20); RDW 13.3 % (11.5-14.5); WBC 5.71 10*3/uL (4.50-10.00)
--- NOTE | 2025-05-25 12:49 | CT ---
EXAMINATION TYPE: CODE STROKE: CT brain wo contr DATE OF EXAM: 05/25/2025 COMPARISON: CLINICAL INDICATION: Female, 74 years old with history of Neuro deficit, acute, stroke suspected; [facility] , Code stroke. Rt side facial droop and slurred speech since Sunday. TECHNIQUE: CT scan of the head is performed without contrast. CT DLP: 1072.[address] CTDI: mGy Automated exposure control for dose reduction was used. FINDINGS: There is no acute intracranial hemorrhage or midline shift identified. There is diffuse v entricular and sulcal prominence consistent with diffuse age-related cerebral atrophy. There is low- attenuation in the periventricular white matter consistent with chronic small vessel ischemic change. The globes are intact and the visualized sinuses are clear. IMPRESSION: No acute intracranial hemorrhage or midline shift. There is diffuse age-related cerebra l atrophy and chronic small vessel ischemic change noted. [facility], , 05/25/2025 12:47 PM
[2025-05-25 13:02] LABS: Partial Thromboplastin Time 26.3 sec (22.0-30.0)
[2025-05-25 13:03] LABS: ALT 26 U/L (4-34); AST 28 U/L (14-36); African American GFR (CKD) >90 (>60 ml/min/1.73 sqM); Albumin 4.0 g/dL (3.5-5.0); Alkaline Phosphatase 115 U/L (38-126); Anion Gap 9 mmol/L; Blood Urea Nitrogen 17 mg/dL (7-17); Calcium 9.5 mg/dL (8.4-10.2); Carbon Dioxide 23 mmol/L (22-30); Chloride 98 mmol/L (98-107); Creatine Kinase 25 U/L (30-135); Glucose 100 mg/dL (74-99); Non-African American GFR(CKD) 87 (>60 ml/min/1.73 sqM); Potassium 4.6 mmol/L (3.5-5.1); Sodium 130 mmol/L (137-145); Total Protein 6.8 g/dL (6.3-8.2)
--- NOTE | 2025-05-25 13:11 | CT ---
She see him on a EXAMINATION TYPE: CT angio head neck DATE OF EXAM: 05/25/2025 12:56 PM COMPARISON: None. CLINICAL INDICATION: Female, 74 years old with history of Neuro deficit, acute, stroke suspected, fac ial droop/slurred speech started Sunday hx bells palsy, TECHNIQUE: Axially acquired helical CT Angiogram of the Neck was obtained with and without contrast. Axial images are supplemented with coronal and sagittal MIP reconstructions. 3D reconstructions were also performed and were post-processed at an independent workstation. Estimated carotid stenosis was calculated using the NASCET criteria. Contrast CTA of the [place] was performed 3-D recons truction imaging obtained at a separate workstation. IV CONTRAST: with IV Contrast, patient injected with 65ml mL of Isovue 370. (None if empty) CT DLP: 403.8 mGycm, Automated exposure control for dose reduction was used. FINDINGS: NECK: Right carotid system: Mild plaque is seen of the right common carotid artery. There is mild plaque a lso noted at the carotid bulb and proximal ICA. No significant diameter reduction. ECA is patent. Right vertebral artery appears unremarkable. Left carotid system: Mild plaque is seen of the left common carotid artery. There is mild plaque als o noted at the carotid bulb and proximal ICA. No significant diameter reduction. ECA is patent. Lef t vertebral artery appears unremarkable. BRAIN: Vertebrobasilar system as well as intracranial portions of the internal carotid arteries and their ma gorge tributaries are patent. I do not see evidence for sizable aneurysm or vascular malformation. Pl ease note MRI provides greater sensitivity and specificity. Visualized brain appears grossly unremar kable. IMPRESSION: 1. No evidence for hemodynamically significant stenosis at the carotid bifurcations. No significant diameter reduction to account for the patient's symptoms. 2. No evidence for intracranial aneurysm or high-grade stenosis. [facility], , 05/25/2025 1:09 PM
[2025-05-25 13:13] LABS: INR 1.0 (<1.2); Prothrombin Time 11.2 sec (10.0-12.5)
--- NOTE | 2025-05-25 13:14 | XR ---
EXAMINATION TYPE: XR chest 1V portable DATE OF EXAM: 05/25/2025 1:11 PM COMPARISON: Chest radiographs from 04/24/2025 TECHNIQUE: XR chest 1V portable Portable AP radiograph of the chest. CLINICAL INDICATION:Female, 74 years old with history of code stroke; FINDINGS: Lungs/Pleura: There is no evidence of pleural effusion, focal consolidation, or pneumothorax. Left l trisha base linear atelectasis. Pulmonary vascularity: Unremarkable. Heart/mediastinum: Cardiomediastinal silhouette is unremarkable. Musculoskeletal: No acute osseous pathology. IMPRESSION: No acute cardiopulmonary disease/process. [facility], , 05/25/2025 1:12 PM
[2025-05-25] MEDS: SODIUM CHLORIDE 0.9% 1,000 ML IV STA (13:16)
[2025-05-25] MEDS: ASPIRIN 325 MG TAB PO STA (13:34)
[2025-05-25] MEDS ORDERED: prednisoLONE ACETATE 1% OPHTH DROPS 5 ML BTL BOTH EYES PRN (14:43)
[2025-05-25] MEDS: PILOCARPINE 5 MG TAB PO SCH (20:36)
[2025-05-25 22:38] LABS: Vitamin B12 570.0 pg/mL (200.0-944.0)
--- NOTE | 2025-05-26 07:54 | P.CNOR ---
History of Present Illness - [facility] Consult date: 05/26/25 Consult reason: other History of present illness: Patient is a 74-year-old female who is seen and examined today. She is well- known to our service service as she has had history of prior cervical spinal surgery and underwent anterior cervical spinal surgery last week and is now postoperative day #6 status post anterior cervical decompression with discectomy and fusion C3-4 which extended her fusion from C4-5 and C5-6 and C6-7. She had undergone her surgery for upper extremity radiculopathy with cervical spine stenosis and neck pain. Yesterday she presented to the hospital as she was having worsening facial drooping. 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 She was not having new specific changes in her upper extremities. She has felt that her upper extremities have made some improvement since her surgery last week, but she is having difficulty with her swallowing and was having worsening facial drooping. We discussed this with her and had her present to the emergency room for further evaluation to rule out the possibility of new cerebrovascular incident. The patient's imaging has not shown any new cerebral vascular event. The patient feels that she is doing well. She is not having any new weakness in her upper extremities. She still has some facial drooping but says that it is manageable and seems stable at this point. She has been able to tolerate a soft diet. She is voiding freely. She is using her upper extremities well. Her pain is adequately controlled. She still having some difficulty with her swallowing but is tolerating her soft diet. Review of Systems As stated per HPI. Denies any chest pain or shortness of breath. Denies any visual changes. She has left-sided facial drooping. She denies any new changes in her upper extremities. Denies any lower extremity issues. Denies any changes in bowel or bladder function. She says she is tolerating her soft diet. 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 Deaf in left ear. Bilateral Wet Macular Degeneration. Lupus, Sjogren's disease, occasional "brain fog." Varicose veins, hx vasculitis. Hx MRSA X3. History of Any Multi-Drug Resistant Organisms: MRSA Year Discovered:: 08/10/22 MDRO Source:: Bronch Wash Past Surgical History: Back Surgery, Ear Surgery, Hysterectomy, Joint Replacement, Tonsillectomy Additional Past Surgical History / Comment(s): Right total knee replacement, left parotid gland removed, left mastoid removed, Cervical fusion Past Anesthesia/Blood Transfusion Reactions: Postoperative Nausea & Vomiting (PONV) Past Psychological History: No Psychological Hx Reported Smoking Status: Never smoker Past Alcohol Use History: None Reported Past Drug Use History: None Reported - Past Family History Father Family Medical History: Cancer Additional Family Medical History / Comment(s): Kidney cancer. Sister(s) Family Medical History: Cancer Additional Family Medical History / Comment(s): Pancreatic cancer. Medications and Allergies Home Medications Medication Instructions Recorded Confirmed Type Atorvastatin [Lipitor] 10 mg PO DAILY 05/14/17 05/25/25 History Losartan Potassium [Cozaar] 100 mg PO DAILY 05/14/17 05/25/25 History Pilocarpine HCl [Salagen] 5 mg PO BID 05/14/17 05/25/25 History Cholecalciferol (Vitamin D3) 125 mcg PO HS 05/14/25 05/25/25 History [Vitamin D3 (125 MCG = 5,000 IU)] Esomeprazole Magnesium 40 mg PO BID 05/14/25 05/25/25 History Gabapentin 300 mg PO DAILY 05/14/25 05/25/25 History Lubiprostone 24 mcg PO BID 05/14/25 05/25/25 History Vit C/E/Zn/Coppr/Lutein/Zeaxan 1 cap PO BID 05/14/25 05/25/25 History [Preservision Areds 2 Softgel] Vitamin C/Biotin [Hair, Skin and 1 tab PO BID 05/14/25 05/25/25 History Nails Chew] amLODIPine [Norvasc] 10 mg PO HS 05/25/25 05/25/25 History metHOTREXate sodium 10 mg PO TH 05/25/25 05/25/25 History prednisoLONE ACETATE 1% OPHTH 1 drops BOTH EYES BID PRN 05/25/25 05/25/25 History [Pred Forte 1%] Allergies Allergy/AdvReac Type Severity Reaction Status Date / Time codeine Allergy Hallucinati Verified 05/25/25 14:36 ons erythromycin base Allergy Vomiting Verified 05/25/25 14:36 nystatin Allergy Rash/Hives Verified 05/25/25 14:36 NSAIDS (Non-Steroidal AdvReac Hx GI Bleed Verified 05/25/25 14:36 Anti-Inflamma Physical Examination Osteopathic Statement: *. No significant issues noted on an osteopathic structural exam other than those noted in the History and Physical/Consult. Her neck is soft and supple. There is no significant swelling. - C Spine: dermatomal strength & reflexes bilateral Shoulder strength: flexion: 5/5 (She is using her upper extremities well. She has full motion in her upper extremities. 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 Her neck incision sites clean dry and intact. There is no significant swelling. No drainage. No erythema) Results - Labs Labs: Abnormal Lab Results - Last 24 Hours (Table) 05/25/25 05/25/25 05/25/25 Range/Units 12:27 12:27 12:30 Hct 37.0 L (37.2-46.3) % Sodium 130 L (137-145) mmol/L Glucose 100 H (74-99) mg/dL POC Glucose (mg/dL) 113 H (70-110) mg/dL Creatine Kinase 25 L (30-135) U/L H & H 05/25/25 Range/Units 12:27 Hgb 12.8 (12.0-15.0) g/dL Hct 37.0 L (37.2-46.3) % Coagulation 05/25/25 Range/Units 12:27 INR 1.0 (<1.2) Result Diagrams: 05/25/25 12:27 05/25/25 12:27 Assessment and Plan Assessment: Postoperative day #6 status post anterior cervical decompression with discectomy and fusion see 3 4 with extension of her fusion from C4-C7 Worsening left facial drooping with a history of Mcgrath's palsy Plan: Postoperative day #6 status post anterior cervical decompression with discectomy and fusion C 3 4 with extension of her fusion from C4-C7 Worsening left facial drooping with a history of Mcgrath's palsy In terms of the patient's cervical spine, the area appears stable and she is not having any upper extremity worsening or new weakness or neurologic change. She has been mobile in her room adequately. She is tolerating her soft diet adequately and she is tolerating her pain well with just Tylenol. Her cervical spine appears stable postoperatively She had worsening facial drooping which seems to be an exacerbation of her Mcgrath's palsy. Her imaging does not show any new cerebrovascular incident or issue. She did not seem to having any neurologic worsening and she is quite comfortable. From an orthopedic standpoint it is okay for the patient to be discharged if she is stable and cleared from the medicine service. We have plans to see her in follow-up at the office next week and I think that will be appropriate follow-up from an orthopedic standpoint. I discussed this with her and answered her questions and she is agreeable. She would like to be discharged home if she is stable from a medical standpoint today.
[2025-05-26] MEDS: GABAPENTIN 300 MG CAP PO SCH (09:26)
[2025-05-26] MEDS: ATORVASTATIN 10 MG TAB PO SCH (09:26)
[2025-05-26] MEDS: ASPIRIN 325 MG TAB PO SCH (09:26)
[2025-05-26 10:21] LABS: Cholesterol 171.00 mg/dL (0.00-200.00); HDL Cholesterol 53.50 mg/dL (40.00-60.00); LDL Cholesterol,Calculated 92.7 mg/dL (0.0-131.0); Triglycerides 124.00 mg/dL (0.00-149.00); VLDL Calculation 24.80 mg/dL (5.00-40.00)
[2025-05-26] MEDS: LOSARTAN 50 MG TAB PO SCH (11:08)
--- NOTE | 2025-05-26 12:40 | P.HPIM ---
History of Present Illness H&P Date: 05/26/25 Christa Thomas is a 74-year-old female patient who presented with concerns of left facial droop. Patient recently underwent post anterior cervical decompression with dissecting and fusion of C3-C4 approximately [address] 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 Patient felt her symptoms were getting worse yesterday and was prompted to come to the ER for further evaluation patient denies any other neurological symptoms besides facial droop no extremity weakness confusion or slurred speech. Patient has a past medical history of asthma, GERD, hearing disorder, hypertension, OA, rheumatoid arthritis, MRSA and essential hypertension. Head CT was performed showing no acute intracranial hemorrhage or midline shift there is age related cerebral atrophy and chronic small vessel ischemic changes noted. CTA performed showing no evidence of hemodynamically significant stenosis at the carotid bifurcations no significant diameter reduction to account for the patient's symptoms no evidence for intracranial an aneurysm or high-grade stenosis. Chest x-ray performed showing no acute cardiopulmonary disease. Labwork completed showing white blood cell 5.71, hemoglobin 12.8, creatinine 0.67 bun 17. At this time patient will be admitted Dr. Engel consulted and neurology services. Patient denies chest pain or shortness of breath. Patient denies nausea vomiting or diarrhea. Patient denies any urinary burning or frequency. 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 Deaf in left ear. Bilateral Wet Macular Degeneration. Lupus, Sjogren's disease, occasional "brain fog." Varicose veins, hx vasculitis. Hx MRSA X3. History of Any Multi-Drug Resistant Organisms: MRSA Date of last positivie culture/infection: 08/10/22 MDRO Source:: Bronch Wash Past Surgical History: Back Surgery, Ear Surgery, Hysterectomy, Joint Replacement, Tonsillectomy Additional Past Surgical History / Comment(s): Right total knee replacement, left parotid gland removed, left mastoid removed, Cervical fusion Past Anesthesia/Blood Transfusion Reactions: Postoperative Nausea & Vomiting (PONV) Past Psychological History: No Psychological Hx Reported Smoking Status: Never smoker Past Alcohol Use History: None Reported Past Drug Use History: None Reported - Past Family History Father Family Medical History: Cancer Additional Family Medical History / Comment(s): Kidney cancer. Sister(s) Family Medical History: Cancer Additional Family Medical History / Comment(s): Pancreatic cancer. Medications and Allergies Home Medications Medication Instructions Recorded Confirmed Type Atorvastatin [Lipitor] 10 mg PO DAILY 05/14/17 05/25/25 History Losartan Potassium [Cozaar] 100 mg PO DAILY 05/14/17 05/25/25 History Pilocarpine HCl [Salagen] 5 mg PO BID 05/14/17 05/25/25 History Cholecalciferol (Vitamin D3) 125 mcg PO HS 05/14/25 05/25/25 History [Vitamin D3 (125 MCG = 5,000 IU)] Esomeprazole Magnesium 40 mg PO BID 05/14/25 05/25/25 History Gabapentin 300 mg PO DAILY 05/14/25 05/25/25 History Lubiprostone 24 mcg PO BID 05/14/25 05/25/25 History Vit C/E/Zn/Coppr/Lutein/Zeaxan 1 cap PO BID 05/14/25 05/25/25 History [Preservision Areds 2 Softgel] Vitamin C/Biotin [Hair, Skin and 1 tab PO BID 05/14/25 05/25/25 History Nails Chew] amLODIPine [Norvasc] 10 mg PO HS 05/25/25 05/25/25 History metHOTREXate sodium 10 mg PO TH 05/25/25 05/25/25 History prednisoLONE ACETATE 1% OPHTH 1 drops BOTH EYES BID PRN 05/25/25 05/25/25 History [Pred Forte 1%] Allergies Allergy/AdvReac Type Severity Reaction Status Date / Time codeine Allergy Hallucinati Verified 05/25/25 14:36 ons erythromycin base Allergy Vomiting Verified 05/25/25 14:36 nystatin Allergy Rash/Hives Verified 05/25/25 14:36 NSAIDS (Non-Steroidal AdvReac Hx GI Bleed Verified 05/25/25 14:36 Anti-Inflamma Physical Exam Vitals: Vital Signs Temp Pulse Pulse Resp BP BP Pulse Ox 05/26/25 10:58 97.7 F 75 18 145/89 99 05/26/25 08:52 98.1 F 95 16 150/96 98 05/26/25 08:00 98.0 F 96 16 151/108 98 05/26/25 07:28 98.1 F 96 16 151/108 98 05/26/25 03:20 98.0 F 76 18 150/84 98 05/25/25 23:00 82 18 166/83 98 05/25/25 20:30 98.0 F 70 20 171/85 97 05/25/25 18:52 98.0 F 78 16 176/82 99 05/25/25 18:40 65 16 150/86 98 05/25/25 18:00 60 16 158/82 100 05/25/25 17:00 65 16 148/86 98 05/25/25 16:00 66 16 153/63 96 05/25/25 14:00 75 16 130/88 98 05/25/25 13:36 85 16 165/97 98 05/25/25 12:58 73 20 165/87 98 Intake and Output 05/25/25 05/26/25 05/26/25 22:59 06:59 14:59 Intake Total 540 480 Balance 540 480 Intake: Oral 540 480 Other: Voiding Method Toilet Toilet # Voids 1 3 1 Weight 69.853 kg Head normocephalic Neck supple Lungs clear to auscultation bilaterally no wheezing or crackles Heart regular rate and rhythm S1-S2, no rub or gallop Abdomen is soft nontender nondistended positive bowel sounds no hepatosplenomegaly Extremities no edema Neuro alert and orientated to 3. Left facial droop noted no other neurological symptoms equal strength throughout all extremities Results CBC & Chem 7: 05/25/25 12:27 05/25/25 12:27 Labs: Abnormal Lab Results - Last 24 Hours (Table) 05/25/25 05/25/25 Range/Units 12:27 12:27 Hct 37.0 L (37.2-46.3) % Sodium 130 L (137-145) mmol/L Glucose 100 H (74-99) mg/dL Creatine Kinase 25 L (30-135) U/L Thrombosis Risk Factor Assmnt - Choose All That Apply Each Factor Represents 1 point: History of prior major surgery (<1month), Obesity (BMI >25), Varicose veins Each Risk Factor Represents 2 Points: Age 61-74 years Each Risk Factor Represents 3 Points: Positive Lupus Anticoagulant Each Risk Factor Represents 5 Points: Stroke (< 1 month) Thrombosis Risk Factor Assessment Total Risk Factor Score: 13 Thrombosis Risk Factor Assessment Level: High Risk Assessment and Plan Assessment: Left facial droop likely secondary to Mcgrath's palsy History of Mcgrath's palsy Postoperative day 6 status post anterior cervical decompression disecectomy with Dr. Camp History of GERD History of hyperlipidemia History of essential hypertension History of rheumatoid arthritis History of non-Hodgkin's lymphoma History of lupus History of hyperlipidemia Orthopedic surgery and neurology services consulted Repeat labs ordered Time with Patient: Greater than 30 (Greater than 60% of the total time spent in counseling and coordination of care)
--- NOTE | 2025-05-26 13:11 | CT ---
EXAMINATION TYPE: CT brain wo con DATE OF EXAM: 05/26/2025 COMPARISON: 05/25/2025 CLINICAL INDICATION: Female, 74 years old with history of compare to previous; PHH, Code stroke yeste rday, compare to prior. CT DLP: 1098.4 mGycm Automated exposure control for dose reduction was used. Findings: The ventricles, basal cisterns and sulci over the convexities are within normal limits for patient's age and there is no mass effect or shift of midline structures. No abnormal density is seen throughout the brain parenchyma and there is no acute intra or extra-axia l hemorrhage. The posterior fossa including the brainstem, fourth ventricle and cerebellar pontine angles appear no rmal. Intraorbital contents appear normal and symmetric. There are marked chronic inflammatory changes in the left maxillary sinus. There are postoperative ch anges of left mastoidectomy.. The calvarium is intact. IMPRESSION: 1. There is no acute bleed or mass effect. 2. No significant interval change. [facility], Workstation: JU, 05/26/2025 1:09 PM
[2025-05-26 13:18] VITALS: RESP 16
--- NOTE | 2025-05-26 13:38 | P.DS ---
Providers Date of admission: 05/25/25 13:53 Expected date of discharge: 05/26/25 Attending physician: Wanda Wilkerson Consults: 05/25/25 13:51 Consult Physician Routine Consulting Provider: Oscar Winters Consult Reason/Comments: code stroke. possible cva vs. chronic facial droop. No MRI per Dr. Camp. Do you want consulting provider notified?: Yes Consult Physician Routine Consulting Provider: Jarett Camp Consult Reason/Comments: recent cervical fusion Do you want consulting provider notified?: Yes Primary care physician: Ayana Guzmán Hospital Course: Discharge diagnosis Left facial droop likely secondary to Mcgrath's palsy History of Mcgrath's palsy Postoperative day 6 status post anterior cervical decompression disecectomy with Dr. Camp History of GERD History of hyperlipidemia History of essential hypertension History of rheumatoid arthritis History of non-Hodgkin's lymphoma History of lupus History of hyperlipidemia Hospital course Christa Thomas is a 74-year-old female patient who presented with concerns of left facial droop. Patient recently underwent post anterior cervical decompression with dissecting and fusion of C3-C4 approximately [address] 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 Patient felt her symptoms were getting worse yesterday and was prompted to come to the ER for further evaluation patient denies any other neurological symptoms besides facial droop no extremity weakness confusion or slurred speech. Patient has a past medical history of asthma, GERD, hearing disorder, hypertension, OA, rheumatoid arthritis, MRSA and essential hypertension. Head CT was performed showing no acute intracranial hemorrhage or midline shift there is age related cerebral atrophy and chronic small vessel is chemic changes noted. CTA performed showing no evidence of hemodynamically significant stenosis at the carotid bifurcations no significant diameter reduction to account for the patient's symptoms no evidence for intracranial an aneurysm or high-grade stenosis. Chest x-ray performed showing no acute cardiopulmonary disease. Labwork completed showing white blood cell 5.71, hemoglobin 12.8, creatinine 0.67 bun 17. At this time patient will be admitted Dr. Engel consulted and neurology services. Patient denies chest pain or shortness of breath. Patient denies nausea vomiting or diarrhea. Patient denies any urinary burning or frequency. Current vital signs temp 97.7, heart rate 75, respiratory rate 18, blood pressure 145/89 with pulse ox of 99% on room air patient cleared for d/c from orthopedic and neurology. head Ct negative. await to 2decho result. Patient Condition at Discharge: Stable Plan - Discharge Summary Discharge Rx Participant: No New Discharge Prescriptions: Continue Losartan Potassium [Cozaar] 100 mg PO DAILY Atorvastatin [Lipitor] 10 mg PO DAILY Pilocarpine HCl [Salagen] 5 mg PO BID Lubiprostone 24 mcg PO BID Gabapentin 300 mg PO DAILY Cholecalciferol (Vitamin D3) [Vitamin D3 (125 MCG = 5,000 IU)] 125 mcg PO HS metHOTREXate sodium 10 mg PO TH Esomeprazole Magnesium 40 mg PO BID Vitamin C/Biotin [Hair, Skin and Nails Chew] 1 tab PO BID Vit C/E/Zn/Coppr/Lutein/Zeaxan [Preservision Areds 2 Softgel] 1 cap PO BID amLODIPine [Norvasc] 10 mg PO HS prednisoLONE ACETATE 1% OPHTH [Pred Forte 1%] 1 drops BOTH EYES BID PRN PRN Reason: Inflammation Discharge Medication List Atorvastatin [Lipitor] 10 mg PO DAILY 05/14/17 [History] Losartan Potassium [Cozaar] 100 mg PO DAILY 05/14/17 [History] Pilocarpine HCl [Salagen] 5 mg PO BID 05/14/17 [History] Cholecalciferol (Vitamin D3) [Vitamin D3 (125 MCG = 5,000 IU)] 125 mcg PO HS 05/14/25 [History] Esomeprazole Magnesium 40 mg PO BID 05/14/25 [History] Gabapentin 300 mg PO DAILY 05/14/25 [History] Lubiprostone 24 mcg PO BID 05/14/25 [History] Vit C/E/Zn/Coppr/Lutein/Zeaxan [Preservision Areds 2 Softgel] 1 cap PO BID 05/14/25 [History] Vitamin C/Biotin [Hair, Skin and Nails Chew] 1 tab PO BID 05/14/25 [History] amLODIPine [Norvasc] 10 mg PO HS 05/25/25 [History] metHOTREXate sodium 10 mg PO TH 05/25/25 [History] prednisoLONE ACETATE 1% OPHTH [Pred Forte 1%] 1 drops BOTH EYES BID PRN 05/25/25 [History] Follow up Appointment(s)/Referral(s): Jarett Camp, DO [Doctor of Osteopathic Medicine] - 1 Week (As already scheduled) None,Stated [REFERRING] - 1-2 days Activity/Diet/Wound Care/Special Instructions: Soft collar for comfort May ambulate as tolerated. Avoid heavy or rigorous activity. No repetitive bending twisting or lifting. No overhead work.
[2025-05-26] MEDS: ACETAMINOPHEN TAB 325 MG TAB PO PRN (14:54)
--- NOTE | 2025-05-26 15:18 | P.CNNES ---
History of Present Illness Consult date: 05/26/25 Requesting physician: Yury Jimenez Reason for Consult: code stroke. possible cva vs. chronic facial droop. No MRI per Dr. Camp. History of Present Illness: This is a 74-year-old woman history of Mcgarth's palsy and recent cervical fusion who presents the emergency department 05/25/2025 for worsening of the right facial droop since her recent cervical fusion. According to the patient she had cervical fusion in the last week about possibly 5 days ago and after the surgery she had worsening of the right lower facial droop. 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 It seems that orthopedic surgeon, Dr. Camp the patient and patient stated that she continues to have the right lower facial droop so she was asked to come to the hospital for further evaluation. She denies any weakness in the upper or lower extremity. Denies an y speech difficulty. Denies any visual disturbance. Denies any history of stroke. She has a history of lupus and Sjogren syndrome about 20 years ago and follow-up with [facility] over [place], [place]. Roe palsy over the right face she had about 15 years ago. She does have significant hearing loss over the left side. She was unable to obtain MRI of the brain because of her recent cervical fusion per her orthopedic surgeon. Some of the work-up during this hospital visit consisted of: CT of the head is reported as no acute intracranial hemorrhage or midline shift. There is diffuse age-related cerebral atrophy and chronic small vessel ischemic change noted. Personally reviewed the CT of the head and agree with the report. CT angiography of the head and neck is reported as no evidence for hemodynamically significant stenosis at the carotid bifurcation. No significant diameter reduction to account for the patient's symptoms. No evidence for intracranial aneurysm or high-grade stenosis. Review of Systems As per HPI. 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 Deaf in left ear. Bilateral Wet Macular Degeneration. Lupus, Sjogren's disease, occasional "brain fog." Varicose veins, hx vasculitis. Hx M RSA X3. History of Any Multi-Drug Resistant Organisms: MRSA Date of last positivie culture/infection: 08/10/22 MDRO Source:: Bronch Wash Past Surgical History: Back Surgery, Ear Surgery, Hysterectomy, Joint Replacement, Tonsillectomy Additional Past Surgical History / Comment(s): Right total knee replacement, left parotid gland removed, left mastoid removed, Cervical fusion Past Anesthesia/Blood Transfusion Reactions: Postoperative Nausea & Vomiting (PONV) Past Psychological History: No Psychological Hx Reported Smoking Status: Never smoker Past Alcohol Use History: None Reported Past Drug Use History: None Reported - Past Family History Father Family Medical History: Cancer Additional Family Medical History / Comment(s): Kidney cancer. Sister(s) Family Medical History: Cancer Additional Family Medical History / Comment(s): Pancreatic cancer. Medications and Allergies Home Medications Medication Instructions Recorded Confirmed Type Atorvastatin [Lipitor] 10 mg PO DAILY 05/14/17 05/25/25 History Losartan Potassium [Cozaar] 100 mg PO DAILY 05/14/17 05/25/25 History Pilocarpine HCl [Salagen] 5 mg PO BID 05/14/17 05/25/25 History Cholecalciferol (Vitamin D3) 125 mcg PO HS 05/14/25 05/25/25 History [Vitamin D3 (125 MCG = 5,000 IU)] Esomeprazole Magnesium 40 mg PO BID 05/14/25 05/25/25 History Gabapentin 300 mg PO DAILY 05/14/25 05/25/25 History Lubiprostone 24 mcg PO BID 05/14/25 05/25/25 History Vit C/E/Zn/Coppr/Lutein/Zeaxan 1 cap PO BID 05/14/25 05/25/25 History [Preservision Areds 2 Softgel] Vitamin C/Biotin [Hair, Skin and 1 tab PO BID 05/14/25 05/25/25 History Nails Chew] amLODIPine [Norvasc] 10 mg PO HS 05/25/25 05/25/25 History metHOTREXate sodium 10 mg PO TH 05/25/25 05/25/25 History prednisoLONE ACETATE 1% OPHTH 1 drops BOTH EYES BID PRN 05/25/25 05/25/25 History [Pred Forte 1%] Allergies Allergy/AdvReac Type Severity Reaction Status Date / Time codeine Allergy Hallucinati Verified 05/25/25 14:36 ons erythromycin base Allergy Vomiting Verified 05/25/25 14:36 nystatin Allergy Rash/Hives Verified 05/25/25 14:36 NSAIDS (Non-Steroidal AdvReac Hx GI Bleed Verified 05/25/25 14:36 Anti-Inflamma Physical Examination - Vital Signs Vital Signs: Vital Signs Temp Pulse Pulse Resp BP BP Pulse Ox 05/26/25 12:52 97.8 F 73 16 143/90 100 05/26/25 12:00 97.7 F 75 16 145/89 99 05/26/25 10:58 97.7 F 75 18 145/89 99 05/26/25 08:52 98.1 F 95 16 150/96 98 05/26/25 08:00 98.0 F 96 16 151/108 98 05/26/25 07:28 98.1 F 96 16 151/108 98 05/26/25 03:20 98.0 F 76 18 150/84 98 05/25/25 23:00 82 18 166/83 98 05/25/25 20:30 98.0 F 70 20 171/85 97 05/25/25 18:52 98.0 F 78 16 176/82 99 05/25/25 18:40 65 16 150/86 98 05/25/25 18:00 60 16 158/82 100 05/25/25 17:00 65 16 148/86 98 05/25/25 16:00 66 16 153/63 96 Intake and Output 05/26/25 05/26/25 05/26/25 06:59 14:59 22:59 Intake Total 480 Balance 480 Intake: Oral 480 Other: Voiding Method Toilet # Voids 3 1 General: Sitting up in bed and is not in acute distress. Neuro: Patient is awake alert oriented to self place and time. Is following simple commands. No aphasia or neglect. Pupils are round, 3mm and reactive to light. Visual ca are full to confrontation. EOM intact and no nystagmus throughout. Normal facial sensation to touch throughout. Has right upper and lower facial weakness that is mild to subtle moderate (chronic). Has severe hearing loss over the left ear (chronic) No dysarthria. Tongue is midline and move side to side without difficulty. Motor: Strength is 5/5 throughout. Normal tone and bulk. Cerebellar: Normal finger to nose bilaterally. Sensation: Normal to touch throughout. Reflex: 2+ throughout. Results - Laboratory Findings CBC and BMP: 05/25/25 12:27 05/25/25 12:27 Abnormal Lab Findings: Abnormal Labs 05/25/25 05/25/25 05/25/25 12:27 12:27 12:30 Hct 37.0 L Sodium 130 L Glucose 100 H POC Glucose (mg/dL) 113 H Creatine Kinase 25 L Assessment and Plan Assessment: This is a 74-year-old woman with history of Mcgrath's palsy over the right side that had a recent cervical fusion and after surgery she had worsening of the facial droop. Denies any other neurological issues. She states that this happens when she is under stress or any surgeries that triggers it. CT of the head is unremarkable for any acute process. Worsening of facial palsy on the right side likely triggered by her recent cervical surgery. Cannot rule out stroke but seems less since states this is common in past. Recent cervical fusion History of Mcgrath's palsy over the right side about 15 years ago History of lupus History of Sjogren syndrome Plan: Unable to obtain MRI of the brain per orthopedic recommendation because of her recent cervical surgery therefore we will get a repeat CT of the head In the ED the patient was given aspirin 325 once then started on aspirin 325 daily. Prior to this the patient was not on any antiplatelet. Recommend going down to aspirin 81 mg daily which is sufficient for secondary stroke prophylaxis. She is on Lipitor 10 mg daily. 2D echo was ordered and is pending Continue neurochecks cable strander PT OT and [facility] [facility] are consulted Recommend the patient to follow-up with outpatient neurologist and if it continues to have worsening of the facial droop recommend to have outpatient MRI of the brain within 6 weeks which will be sufficient time after her cervical fusion. Will defer the rest of the medical management to primary other specialist. Patient is ambulatory so does not require any DVT prophylaxis at this time. The plan discussed with the patient as well as the primary team If the CT of the head is negative and the patient is cleared from neurologic perspective and she is adamant of leaving so she can obtain the 2D echo and if it is remarkable will defer the management to her primary care physician. Thank you for the consultation Time with Patient: Greater than 30
[2025-05-26 16:15] VITALS: TEMP 98
[2025-05-26 16:18] VITALS: BP 144/80; PULSE 86
[2025-05-26] MEDS ORDERED: amLODIPine 10 MG TAB PO SCH (21:00)
--- NOTE | 2025-05-27 07:48 | CA ---
Transthoracic Echo Report Name: Christa Thomas Age: 74 Gender: F : 1950 Exam Date: 05/26/2025 13:46 Exam Location: [facility] Ht (in): 59 Wt (lb): 154 Ordering Physician: Oscar Winters MD Attending/Referring Phys: [employer] Pat Smith RDCS Procedure CPT: Indications: cva, facial droop Cardiac Hx: Technical Quality: Good Contrast 1: Total Dose (mL): Contrast 2: Total Dose (mL): MEASUREMENTS (Male / Female) Normal Values 2D ECHO LV Diastolic Diameter PLAX 3.8 cm 4.2 - 5.9 / 3.9 - 5.3 cm LV Systolic Diameter PLAX 2.6 cm IVS Diastolic Thickness 1.1 cm 0.6 - 1.0 / 0.6 - 0.9 cm LVPW Diastolic Thickness 1.1 cm 0.6 - 1.0 / 0.6 - 0.9 cm LV Relative Wall Thickness 0.6 RV Internal Dim ED PLAX 3.4 cm LVOT Diameter 1.6 cm LA Systolic Diameter LX 3.2 cm 3.0 - 4.0 / 2.7 - 3.8 cm LV Diastolic Volume MOD BP 61.7 cm??? 67 - 155 / 56 - 104 cm??? LV Systolic Volume MOD BP 25.3 cm??? - 58 / 19 - 49 cm??? LV Ejection Fraction MOD BP 59.0 % >= 55 % LV Cardiac Index MOD BP 1636.6 cm???/min???m??? LV Diastolic Volume MOD 4C 67.9 cm??? LV Systolic Volume MOD 4C 29.3 cm??? LV Ejection Fraction MOD 4C 56.9 % LV Cardiac Index MOD 4C 1738.2 cm???/min???m??? LV Diastolic Length 4C 8.0 cm LV Systolic Length 4C 6.8 cm LV Diastolic Volume MOD 2C 52.5 cm??? LV Systolic Volume MOD 2C 20.0 cm??? LV Ejection Fraction MOD 2C 61.9 % LV Cardiac Index MOD 2C 1461.7 cm???/min???m??? LV Diastolic Length 2C 7.5 cm LV Systolic Length 2C 6.2 cm LA Volume 36.6 cm??? 18 - 58 / 22 - 52 cm??? LA Volume Index 21.1 cm???/m??? 16 - 28 cm???/m??? DOPPLER MV Area PHT 3.1 cm??? Mitral E Point Velocity 67.3 cm/s Mitral A Point Velocity 99.5 cm/s Mitral E to A Ratio 0.7 MV Deceleration Time 247.7 ms TR Peak Velocity 247.2 cm/s TR Peak Gradient 24.5 mmHg FINDINGS Left Ventricle Left ventricular ejection fraction is estimated at 55-60%. Left ventricular cavity size normal. No obvious regional wall motion abnormalities. Right Ventricle Mid right ventricular dilatation. Right ventricular systolic pressure within normal limits. Right Atrium Normal right atrial size. Left Atrium Normal left atrial size. Mitral Valve Mitral annular calcification. No mitral stenosis. Mild mitral regurgitation. Aortic Valve Trileaflet aortic valve. Thickened aortic valve without stenosis. No aortic valve stenosis or regurgitation. Tricuspid Valve Structurally normal tricuspid valve. No tricuspid stenosis. Mild tricuspid regurgitation. Pulmonic Valve Structurally normal pulmonic valve. No pulmonic stenosis. Mild pulmonic regurgitation. Pericardium No pericardial effusion. Aorta Normal size aortic root and proximal ascending aorta. CONCLUSIONS 1. Normal left ventricular size and systolic function 2. Mild mitral and tricuspid regurgitation Previewed by: Dr. Joe Bernal MD (Electronically Signed) Final Date: 27 May 2025 07:48
[2025-05-27] MEDS ORDERED: ASPIRIN 81 MG PO SCH (09:00)
== END 2025-05-26 15:30 | disposition home or self-care (01) ==
LOC: EC 12:00 → 6NMEDSUR 13:53 → 3SCARD 18:07
PROVIDERS: ADMIT Internal Medicine; ATTEND Internal Medicine
DX: R29.810 Facial weakness (principal); M48.02 Spinal stenosis, cervical region; M54.12 Radiculopathy, cervical region; E78.5 Hyperlipidemia, unspecified; K21.9 Gastro-esophageal reflux disease without esophagitis; I10 Essential (primary) hypertension; H91.92 Unspecified hearing loss, left ear; J45.909 Unspecified asthma, uncomplicated; M06.9 Rheumatoid arthritis, unspecified; M35.00 Sjogren syndrome, unspecified; Z79.899 Other long term (current) drug therapy; Z98.1 Arthrodesis status; Z85.72 Personal history of non-Hodgkin lymphomas; Z85.818 Personal history of malignant neoplasm of other sites of lip, oral cavity, and pharynx; Z86.14 Personal history of Methicillin resistant Staphylococcus aureus infection; Z92.21 Personal history of antineoplastic chemotherapy; Z92.3 Personal history of irradiation; Z88.5 Allergy status to narcotic agent; Z88.8 Allergy status to other drugs, medicaments and biological substances; Z88.6 Allergy status to analgesic agent
CPT/HCPCS: 99285; 36415; 93005; 93306; 97161; 97165; 92610; 80061; 80053; 84443; 82607; 82550; 85025; 85610; 85730; 71045; 70496; 70450 ×2; 70498; G0378 ×3; Q9967